=== PATIENT | female | born 1945 | race Hispanic/Latino ===

== ENCOUNTER 2024-04-04 20:32 | Inpatient (IN) | payer OTHER, SELFPAY ==
[2024-04-04] VITALS (25 sets, daily range): BP systolic 87–146; BP diastolic 42–115; BMI 34.6; BMI 33.4
--- NOTE | 2024-04-04 14:17 | ED.GENMED ---
History of Present Illness
<MARIANA Mckeon - Last Filed: 04/05/24 19:14>
General
Chief Complaint: Fall
Source: patient
Exam Limitations: none
Time Seen by Provider: 04/04/24 13:53
Nursing documentation reviewed up to this point in time: agreed with
History of Present Illness
History of Present Illness:
Patient is a 78-year-old female brought by EMS. Patient is visiting from [place] and was at her nephew's house and tripped on steps. She reports he twisted both ankles and fell landed on her right side hit the right side of her head right hip.
She complains of pain to bilateral ankles, left knee r,ight wrist, right elbow, right orbital region ,right hip. She denies any actual headache. no loss of consciousness she is not on blood thinners.
Review of Systems
<MARIANA Mckeon - Last Filed: 04/05/24 19:14>
Review of Systems
Allergies reviewed?: Yes
Other source history: family
All Other Systems: ROS reviewed and negative except as documented in HPI and ROS
Constitutional: Reports no symptoms
Respiratory: Reports no symptoms
Cardiac: Reports no symptoms
ABD/GI: Reports no symptoms
Musculoskeletal: Reports other (As documented pain to bilateral ankles left knee right hip right wrist right elbow)
Skin: Reports no symptoms
Neurological: Reports other ( no loc ); Denies headache
Phy Exam
<MARIANA Mckeon - Last Filed: 04/05/24 19:14>
General Physical Exam
General Presentation: no apparent distress
General age: appears stated age
General Skin: warm and dry
General Habitus: elderly
General Mental: alert
General Hydration: appears well hydrated
ENT Exam
ENT Exam: EOMI and neck supple
Eye Exam
Eye Exam: PERRL, EOMI and other (right orbital ecchymosis/swelling )
Eye Exam General: PERRL: bilateral and EOM intact: bilateral
Pupil Exam: Bilateral: round and reactive
Cardiovascular Exam
Cardiovascular Exam: regular rate/rhythm, no murmur and normal peripheral pulses
Pulmonary Exam
Pulmonary Exam: lungs clear and no respiratory distress
Neurological Exam
Neurological Exam: alert and oriented x3
Musculoskeletal Exam
Musculoskeletal Exam: other (Patient with tenderness to bilateral lateral ankles strong pulses positive swelling to bilateral ankle; left knee with mild swelling mildly tender however able to flex and extend knees good range of motion of bilateral
hips; bilateral upper extremity strong pulses right wrist with obvious deformity )
Skin Exam
Skin Exam: normal color and warm/dry
Psychiatric Exam
Psychiatric Exam: normal mood/affect
Course
<MARIANA Mckeon - Last Filed: 04/05/24 19:14>
Orders/Labs/Results
Orders:
Orders
04/04/24 14:10
CT Head W/o Iv Contrast Urgent
Comment:
Reason For Exam: trauma
Ankle, Right 3 view CR [CR Ankle - Right Min 3 Views *] Urgent
Comment:
Reason For Exam: trauma
Ankle, left 3 view CR [CR Ankle - Left Min 3 Views ] Urgent
Comment:
Reason For Exam: trauma
04/04/24 14:11
CT Orbits W/o Iv Contrast Urgent
Comment:
Reason For Exam: trauma
CR Elbow - Right Min 2 View Urgent
Reason For Exam: trauma
Hip, Right 2-3 Views [CR Hip - RT w/wo Pel 2-3 Vw*] Urgent
Comment:
Reason For Exam: trauma
Include a pelvis x-ray?: Yes
04/04/24 14:12
Knee, Left 4 or More Views [CR Knee - Left 4 Or More View*] Urgent
Comment:
Reason For Exam: trauma
04/04/24 14:16
IV Insert/Care/Rem.- Treatment PRN
Morphine Sulfate 2 mg IV NOW STA
Wrist, Right 3 Views [CR Wrist - Right Min 3 Views] Urgent
Comment:
Reason For Exam: trauma
04/04/24 15:01
Morphine Sulfate 2 mg IV NOW STA
04/04/24 17:32
Propofol [Diprivan] 20 ml .ROUTE .STK-MED
04/04/24 18:21
Wrist, Right 2 Views CR [CR Wrist - Right Min 2 Views] Urgent
Comment:
Reason For Exam: post reduction
04/04/24 18:30
CR Ankle - Left 2 Views Urgent
Comment:
Reason For Exam: stress views
04/04/24 18:42
boot [Ortho Boot Left- Treatment] ONCE
Short or tall?: Tall
04/04/24 19:50
Admit/Transfer Patient As Directed
Co-Sign Provider:
Level of Care: Inpatient admission
Assign to:: Medical/Surgical
Physician / Group: [facility]
Diagnosis: fall
Reason for Hospitalization: all and R wrist fracture
Expected length of stay greater than two midnights?: Yes
ELOS- Estimated Length of Stay in days: 3
I certify the patient meets the requirements for IP care: Yes
PRN Pain Medication Management As Directed
May give lesser potent ordered pain med per pt: Yes
preference::
Protocol:: Medication orders for pain may be administered in a
manner that supports deferring to patient preference
when the pt is:
- Requesting an ordered lesser potent pain medication.
Least to most potent pain medications are defined
as: acetaminophen < NSAID < tramadol < opioids
(morphine, oxycodone, hydromorphone).
- Requesting a lesser dose of the same medication IF
ORDERED.
- Requesting a less intrusive route of administration
if both routes are prescribed by the provider (PO <
IV).
04/04/24 19:57
Code Status As Directed
Resuscitation Status: Full Code
ORTHOPEDIC CONSULT Routine
Consulting Provider: Triston Kang
Was physician already notified: Yes
Reason for consult: R wrist and Left ankle fracture
Bisacodyl [Dulcolax] 10 mg RECTAL [id number] PRN
Docusate W/Senna [Senokot-S] 1 tablet PO BIDPRN PRN
Polyethylene Glycol Powder [Miralax] 17 grams PO DAILYPRN PRN
Precautions As Directed
Type of Precautions: Other
Comment: fall precaution
04/04/24 20:00
Activity As Directed
Activity Level: With Assistance
Vital Signs As Directed
Frequency: Per unit guidelines
04/04/24 20:02
Acetaminophen [Tylenol] 650 mg PO Q4HPRN PRN
HYDROmorphone [Dilaudid] 0.5 mg IV Q4HPRN PRN
Ondansetron Injectable [Zofran] 4 mg IV Q6HPRN PRN
04/04/24 20:04
HYDROmorphone [Dilaudid] 0.5 mg IV Q4HPRN PRN
04/04/24 20:26
Ot Eval And Treat Routine
Pt Eval And Treat Routine
Activity Level: With Assistance
04/04/24 20:56
Basic Metabolic Panel Routine
Complete Blood Count/No Diff Routine
04/04/24 22:23
Amlodipine [Norvasc] 10 mg PO HS
Montelukast Sodium [Singulair] 10 mg PO HS
icosapent ethyl [Vascepa] 2 grams PO BID
04/04/24 22:23
DX Deep Vein Thrombosis Video Routine
04/05/24 Breakfast
Cholesterol Lowering
At Your Request: Full Participation
Does patient need a safe tray?: No
Cholesterol Lowering: Sodium, 2 Gram
04/05/24 08:00
Hydrochlorothiazide [Oretic] 25 mg PO DAILY
Olmesartan Medoxomil [Benicar] 40 mg PO DAILY
Pantoprazole [Protonix] 40 mg PO DAILY
04/05/24 18:00
Enoxaparin Sodium [Lovenox] 40 mg SC QPM
Vital Signs
Initial and Last Documented VS:
Initial Vital Signs
Temp Pulse Resp BP Pulse Ox
98.6 F 72 16 137/69 98
04/04/24 14:17 04/04/24 14:17 04/04/24 14:17 04/04/24 14:17 04/04/24 14:17
Last Documented Vital Signs
Temp Pulse Resp BP Pulse Ox
97.7 F 59 18 123/53 93
04/05/24 15:51 04/05/24 15:51 04/05/24 15:51 04/05/24 15:51 04/05/24 15:51
Transmission Tester consulted with Physician
Transmission Tester consulted with physician?: Yes
Name of Physician Consulted: DR Estes
<Lorena Estes, DO - Last Filed: 04/04/24 17:21>
Orders/Labs/Results
Orders:
Orders
04/04/24 14:10
CT Head W/o Iv Contrast Urgent
Comment:
Reason For Exam: trauma
Ankle, Right 3 view CR [CR Ankle - Right Min 3 Views *] Urgent
Comment:
Reason For Exam: trauma
Ankle, left 3 view CR [CR Ankle - Left Min 3 Views ] Urgent
Comment:
Reason For Exam: trauma
04/04/24 14:11
CT Orbits W/o Iv Contrast Urgent
Comment:
Reason For Exam: trauma
CR Elbow - Right Min 2 View Urgent
Reason For Exam: trauma
Hip, Right 2-3 Views [CR Hip - RT w/wo Pel 2-3 Vw*] Urgent
Comment:
Reason For Exam: trauma
Include a pelvis x-ray?: Yes
04/04/24 14:12
Knee, Left 4 or More Views [CR Knee - Left 4 Or More View*] Urgent
Comment:
Reason For Exam: trauma
04/04/24 14:16
IV Insert/Care/Rem.- Treatment PRN
Morphine Sulfate 2 mg IV NOW STA
Wrist, Right 3 Views [CR Wrist - Right Min 3 Views] Urgent
Comment:
Reason For Exam: trauma
04/04/24 15:01
Morphine Sulfate 2 mg IV NOW STA
04/04/24 17:32
Propofol [Diprivan] 20 ml .ROUTE .STK-MED
04/04/24 18:21
Wrist, Right 2 Views CR [CR Wrist - Right Min 2 Views] Urgent
Comment:
Reason For Exam: post reduction
04/04/24 18:30
CR Ankle - Left 2 Views Urgent
Comment:
Reason For Exam: stress views
04/04/24 18:42
boot [Ortho Boot Left- Treatment] ONCE
Short or tall?: Tall
04/04/24 19:50
Admit/Transfer Patient As Directed
Co-Sign Provider:
Level of Care: Inpatient admission
Assign to:: Medical/Surgical
Physician / Group: [facility]
Diagnosis: fall
Reason for Hospitalization: all and R wrist fracture
Expected length of stay greater than two midnights?: Yes
ELOS- Estimated Length of Stay in days: 3
I certify the patient meets the requirements for IP care: Yes
PRN Pain Medication Management As Directed
May give lesser potent ordered pain med per pt: Yes
preference::
Protocol:: Medication orders for pain may be administered in a
manner that supports deferring to patient preference
when the pt is:
- Requesting an ordered lesser potent pain medication.
Least to most potent pain medications are defined
as: acetaminophen < NSAID < tramadol < opioids
(morphine, oxycodone, hydromorphone).
- Requesting a lesser dose of the same medication IF
ORDERED.
- Requesting a less intrusive route of administration
if both routes are prescribed by the provider (PO <
IV).
04/04/24 19:57
Code Status As Directed
Resuscitation Status: Full Code
ORTHOPEDIC CONSULT Routine
Consulting Provider: Triston Kang
Was physician already notified: Yes
Reason for consult: R wrist and Left ankle fracture
Bisacodyl [Dulcolax] 10 mg RECTAL [id number] PRN
Docusate W/Senna [Senokot-S] 1 tablet PO BIDPRN PRN
Polyethylene Glycol Powder [Miralax] 17 grams PO DAILYPRN PRN
Precautions As Directed
Type of Precautions: Other
Comment: fall precaution
04/04/24 20:00
Activity As Directed
Activity Level: With Assistance
Vital Signs As Directed
Frequency: Per unit guidelines
04/04/24 20:02
Acetaminophen [Tylenol] 650 mg PO Q4HPRN PRN
HYDROmorphone [Dilaudid] 0.5 mg IV Q4HPRN PRN
Ondansetron Injectable [Zofran] 4 mg IV Q6HPRN PRN
04/04/24 20:04
HYDROmorphone [Dilaudid] 0.5 mg IV Q4HPRN PRN
04/04/24 20:26
Ot Eval And Treat Routine
Pt Eval And Treat Routine
Activity Level: With Assistance
04/04/24 20:56
Basic Metabolic Panel Routine
Complete Blood Count/No Diff Routine
04/04/24 22:23
Amlodipine [Norvasc] 10 mg PO HS
Montelukast Sodium [Singulair] 10 mg PO HS
icosapent ethyl [Vascepa] 2 grams PO BID
04/04/24 22:23
DX Deep Vein Thrombosis Video Routine
04/05/24 Breakfast
Cholesterol Lowering
At Your Request: Full Participation
Does patient need a safe tray?: No
Cholesterol Lowering: Sodium, 2 Gram
04/05/24 08:00
Hydrochlorothiazide [Oretic] 25 mg PO DAILY
Olmesartan Medoxomil [Benicar] 40 mg PO DAILY
Pantoprazole [Protonix] 40 mg PO DAILY
04/05/24 18:00
Enoxaparin Sodium [Lovenox] 40 mg SC QPM
Vital Signs
Initial and Last Documented VS:
Initial Vital Signs
Temp Pulse Resp BP Pulse Ox
98.6 F 72 16 137/69 98
04/04/24 14:17 04/04/24 14:17 04/04/24 14:17 04/04/24 14:17 04/04/24 14:17
Last Documented Vital Signs
Temp Pulse Resp BP Pulse Ox
97.7 F 59 18 123/53 93
04/05/24 15:51 04/05/24 15:51 04/05/24 15:51 04/05/24 15:51 04/05/24 15:51
Procedures
<MARIANA Mckeon - Last Filed: 04/05/24 19:14>
Moderate Sedation
ASA Risk Score: Class II
Chart and allergies reviewed: Yes
Consent for anesthesia obtained: Yes
Time out completed (validating right patient & procedure): Yes
Moderate Sedation Start Time(when first medication is given): 18:08
History of difficult intubation: No
Airway free of obstruction: Yes
Patient has a gag reflex: Yes
Patient is able to open mouth: Yes
Patient has no dentures: Yes
Patient has no loose teeth: Yes
Medication administered by Provider during Moderate Sedation: IV Propofol (mg)
Total dose administered: 100
Time drug administered: 18:08
Moderate Sedation Procedure End Time: 18:25
<MARIANA Mckeon - Last Filed: 04/05/24 19:14>
MDM/Problems Addressed
Differential Diagnosis Includes:
Not limited to head injury, wrist fracture, ankle fracture for sprain knee fracture versus contusion versus sprain strain elbow fracture orbital fracture, contusions
MDM/Problems Addressed:
Patient is a 78-year-old female who describes mechanical fall and fell twisting her ankles and landed on right side, hitting right head knee right wrist and right elbow. Patient has an obvious hematoma to the right forehead orbital region. She is
not on blood thinners CT head negative. She has obvious wrist deformity with obvious distal radius and ulna fracture. Patient has a distal left fibula fracture that appears nondisplaced. Case reviewed with orthopedics Dr. Kang who does
suggest reducing right wrist which was reduced with moderate sedation with ED physician at bedside. Patient has aside from the left distal femur fracture sprain of the right ankle and is unable to bear weight. Will admit because patient is unable
to bear weight will place left ankle in a boot after getting stress views requested by orthopedics. Right wrist was placed in a sugar-tong
<MARIANA Mckeon - Last Filed: 04/05/24 19:14>
*Radiology
Radiology exam reviewed: radiology read reviewed
*Pulse Oximetry
Patient hypoxic: no
*Critical Care Note
Total Time (30-74mins, 75-104mins- exclusive of procedures): Not Applicable
ED Attending Note
<MARIANA Mckeon - Last Filed: 04/05/24 19:14>
-
Portions of this chart may have been created with voice recognition software.� Occasional wrong word or��sound alike� substitutions may have occurred due to the inherent limitations of voice recognition software.
<Lorena Estes, DO - Last Filed: 04/04/24 17:21>
ED Attending Note
Patient seen and examined by attending physician: Yes
I performed the substantive portion of visit, reviewed & personally made and approve the management plan that is documented in note by myself or TINO.: Yes
I performed a history and physical exam of patient and discussed management with resident, I reviewed resident's note and agree with documented findings and plan of care.: Yes
ED Attending Note:
78-year-old female presenting after a fall. Patient is from [place], visiting family, tripped prior to arrival and fell, with signs of head injury. Primary complaint is right upper extremity pain, right hip pain, bilateral ankle pain. Vital signs
stable.
On exam, GCS 15, protecting airway with primary survey intact. On secondary survey, evidence of hematoma to the forehead. Obvious deformity to the right wrist with concern for fracture. Distal sensation and pulses intact. Generalized tenderness
to bilateral ankles without obvious deformity. Distal sensation and pulses intact. Pelvis is stable. Unremarkable cardiac and pulmonary exam. No tenderness to the abdomen. Trauma workup initiated by TINO, with CT brain imaging without acute
intracranial normality. However, x-ray of the wrist shows obvious radial fracture. In addition, left ankle fracture, left fibula. Patient is unable to ambulate, and will not be able to use crutches. For this reason will require admission. Plan
for sedation for reduction of the right wrist in discussion with orthopedics.
Discharge Plan
Departure
Patient Disposition: Admit
Date of Disposition: 04/04/24
Time of Disposition: 18:36
Admit to: Med/Surg
Admit to doctor: hospitalist
Presentation/result/management discussed w/ accepting MD/DO: Hospitalist
Patient with high blood pressure during this ER visit?: No
Condition: Fair
Covid-19: Not Applicable
Discharge Problem:
right wrist fracture, Head injury, left distal fibula fracture
Interventions
Interventions:
*Risk Screen - Suicide Last Done: 04/04/24 23:18
*General Assessment Last Done: 04/04/24 13:43
*Neglect/Abuse Screening Last Done: 04/04/24 13:43
ED- Fall Risk Assessment Last Done: 04/04/24 13:57
*ED COVID-19 Vaccine History Last Done: 04/04/24 23:18
*Nursing Disposition Last Done: 04/04/24 22:16
ED-Musculoskeletal Assessment Last Done: 04/04/24 14:56
ED- Neurological Assessment Last Done: 04/04/24 14:56
ED-Skin Assessment Last Done: 04/04/24 14:56
Discharge Date and Time
Discharge Date/Time: 04/04/24 22:16
[2024-04-04] MEDS: MORPHINE SULFATE 2 MG IV ×2 (14:26→16:01)
--- NOTE | 2024-04-04 20:05 | HPS.HSE ---
Family Physician
-
Family Physician: * NONE
Chief Complaint
-
Mechanical fall and pain in the right wrist
History of Present Illness
Pleasant 78-year-old female who is originally from [place] visiting family here, with known history of hypertension, dyslipidemia presented to the hospital after had a mechanical fall while trying to get out of the sunroom going to the PACU area
which has been caught on the security camera of the house, patient had no symptoms prior to the fall like syncope or dizziness or loss of balance. Is obvious from the videos right leg gave away and she fell on the right side onto the ground, and
try to hold her self with putting the right hand down, immediately experienced severe pain in the right wrist and left ankle as well as right wrist and right knee area,
On multiple x-ray while CT head and neck showed no intracranial abnormalities and some right periorbital skin skin contusion. X-ray of the right wrist showed right distal palmar fracture patient already been splinted also left ankle x-ray showed
nondisplaced distal head of the fibula.
Ortho been contacted recommending bring his surgical boot on both legs and posterior splint and right arm.
Patient awake, alert and oriented x 3 hold appropriate conversation accompanied by nephew at the bedside.
Still complaining of excruciating pain all over mostly right wrist and left ankle
Medical History
Past Medical History
Past Medical History: Reports Other
Additional Past Medical History:
Past medical history archive reviewed:
Hypertension
Dyslipidemia
Asthma
Social history: Recent lives in [place] while visiting the area, denies smoking and rarely drinks any alcohol and she is independent.
Family history: Reviewed and noncontributory
Past Surgical History: Reports Other
Social History
Unable to obtain full social history at this time due to: Other
Family History
Family History: Other
Allergies / Home Medications
Allergies reflects when Allergies were last updated in [employer].
Home Medications with original date entered in [facility]
Allergy/Medication List:
Allergies
Allergy/AdvReac Type Severity Reaction Status Date / Time
Penicillins Allergy Unknown Verified 04/04/24 13:37
Home Medications
amlodipine 10 mg tablet 10 mg PO HS 04/04/24
evolocumab 140 mg/mL subcutaneous pen injector (Repatha SureClick) 140 mg SC Q2W 04/04/24
hydrochlorothiazide 25 mg tablet 25 mg PO DAILY 04/04/24
icosapent ethyl 1 gram capsule (Vascepa) 2 g PO BID 04/04/24
lansoprazole 30 mg capsule,delayed release 30 mg PO DAILY 04/04/24
montelukast 10 mg tablet 10 mg PO HS 04/04/24
olmesartan 40 mg tablet 40 mg PO DAILY 04/04/24
Review of Systems
-
A 12 point ROS was completed and negative except as noted: Yes
Physical Exam
Vital Signs
Vital Signs
Temp Pulse Resp BP Pulse Ox
99 F 66 15 124/59 97
04/04/24 18:40 04/04/24 19:46 04/04/24 19:46 04/04/24 19:46 04/04/24 19:46
Physical exam:
General: Awake, alert and oriented x3, not in distress and holds appropriate conversation.
HEENT: Ecchymosis and bruises of the face especially around the right eye, no active discharge, ecchymosis or bruising, moist lips, tongue and mucous membrane.
Eyes: Right periorbital ecchymosis and bruising, no discharge or red conjunctiva, no nystagmus, pupils are reactive and equal
Neck:Supple, no JVD no bruit no goiter.
Respiratory: Normal AP contour and diameter, normal chest wall movement, normal respiratory effort, no respiratory distress,
Lungs: Good air entry bilaterally, no wheezing or rhonchi, no rales or crackles
Heart: S1, S2 regular, normal rate, no added sound.
Gastrointestinal: Positive bowel sounds, soft, nontender, no guarding or rigidity or organomegaly
Musculoskeletal: Right wrist have a posterior splint, able to move the finger good capillary refill, swelling of the both ankle area limitation of movement,, no chest wall abnormality or tenderness. All other joints and extremities have good range
of motion, no muscle tenderness or any joint swelling or tenderness.
Extremities: No pitting edema, good peripheral pulses, good range of motion
Skin: Warm and dry, no ulceration, normal color.
Neurological: Awake, alert and oriented x3, no facial droop speech clear and comprehensive, good muscle tone,
Psychiatric: Normal mood, normal thought and judgment, normal affect,
Physical Exam
General: Other
Laboratory Results
-
Blood work ordered and pending
CT head:
Crescentic soft tissue density in the right anterior frontal scalp and extending to the right periorbital region, compatible with soft tissue contusion/hematoma.
No evidence of acute intracranial abnormality.
Multijoint x-ray of the open reviewed by me while referred to the official report by radiologist once available.
Data Reviewed
-
Diagnostic Radiology: Image Personally Visualized and interpreted, Discussed with Patient and Discussed with Family
CT Scan: Image Personally Visualized and interpreted, Report Reviewed by me, Discussed with Patient and Discussed with Family
Impression/Plan
-
IMPRESSION:
78-year-old female presented to the hospital for mechanical fall while getting out of the sun room to the [facility] area fell down couple of steps. Workup showed right distal radius and left distal fibular fracture.
Mechanical fall:
PT
Fall precaution
Right wrist fracture: Patient already have a posterior splint
Pain medication with Dilaudid and Tylenol as needed
Elevation of the right upper extremity
Ortho consult and defer further workup to Ortho
Left distal fibular head fracture with no displacement:
Ortho consulted and recommended surgical boot
IV Dilaudid as needed
Tylenol as needed
PT OT
Hypertension:
Continue amlodipine and olmesartan monitor vital sign.
Check CBC and BMP
All discussed with the patient and the nurse at the bedside in detail expressed understanding
Consults full code
DVT prophylaxis Lovenox
[2024-04-04] MEDS: DILAUDID 0.5 MG IV (20:52)
[2024-04-04 21:07] LABS: Hematocrit 32.8 % (37.0-47.0); Hemoglobin 11.3 g/dL (12.0-16.0); Mean Corp Hgb Conc. 34.5 g/dL (33.0-37.0); Mean Corpuscular Hgb 27.4 pg (27.0-31.0); Mean Corpuscular Volume 79.6 fL (81.0-99.0); Mean Platelet Volume 9.7 fL (7.4-10.4); Platelet Count 164 10^3/uL (130-400); Red Blood Cell Count 4.12 10^6/uL (4.20-5.40); Red Cell Dist. Width 14.6 % (11.5-14.5); White Blood Cell Count 6.8 10^3/uL (4.8-10.8)
[2024-04-04 21:21] LABS: Blood Urea Nitrogen 21 mg/dl (7-17); Calcium 8.6 mg/dl (8.4-10.2); Carbon Dioxide 23 mmol/L (22-30); Chloride 107 mmol/L (98-107); Estimated Creatinine Clearance 68 ml/min; Glucose 99 mg/dl (70-99); Potassium 3.5 mmol/L (3.5-5.1); Sodium 141 mmol/L (135-145); eGFR > 60.00
[2024-04-04] MEDS: NORVASC 10 MG PO (23:10)
[2024-04-04] MEDS: SINGULAIR 10 MG PO (23:11)
--- NOTE | 2024-04-05 02:27 | TRANSFER ---
Addendum entered by Stella Wilkinson RN 04/05/24 03:05:
Right elbow to palm splinted and des wrapped. Plan of care ongoing.
Original Note:
Pt admitted to unit from ED. Pt pulled over into bed from stretcher by nursing staff. Right elbow and forearm splinted and des wrapped. Left foot has surgical boot. Static overlay in place. Q2 turn. AAXO3. VS: Temp 98.2, Pulse 64, BP 130/52, Resp
rate 16, and O2 97% on RA. Pt reports taking a '81 mg aspirin before flying on [April 02] morning. My doctor told me to take an aspirin the night before I fly. I forgot so I took it morning. I had a blood clot before.' Notified
MARIANA So Snehal Aponte (Linda). No new orders at this time. Plan of care ongoing.
[2024-04-05] MEDS: DILAUDID 0.5 MG IV ×5 (05:36→22:01)
[2024-04-05] MEDS: FLUSH (NSS) 2 FLUSH IV (05:38)
--- NOTE | 2024-04-05 06:24 | CON.ORTHO ---
Consultation - Orthopedics
History
78-year-old female presented to the emergency department status post trip and fall down some steps with predominant complaints of right wrist pain and left ankle pain. She subsequently diagnosed with a displaced right distal radius fracture as well
as a nondisplaced left malleolus fracture. She underwent closed reduction of wrist fracture and was placed in a boot for left ankle fracture admitted to the hospital service for ambulatory dysfunction. Orthopedics was consulted for further
evaluation and treatment. This morning patient reports that she was visiting her nephew from [place]. She currently resides in the [facility]. As she is complaining of pain in bilateral ankles as well as right wrist although she reports
feeling much improvement in her right wrist pain in splint. She reports that she does have a walker at home but does not regularly use this for ambulatory assistance. She reports that she is [id number].
Allergies / Home Medications
Past medical history: Hypertension, dyslipidemia, asthma
Past surgical history. None reported
Social history: Lives in [place], non-smoker
Family history not pertinent
Allergy/AdvReac Type Severity Reaction Status Date / Time
adhesive tape Allergy Rash Verified 04/04/24 23:17
Penicillins Allergy Unknown Verified 04/04/24 13:37
�Medication �Instructions �Recorded
amlodipine 10 mg tablet 10 mg PO HS 04/04/24
evolocumab 140 mg/mL subcutaneous 140 mg SC Q2W 04/04/24
pen injector (Repathjavon Trinidadick)
hydrochlorothiazide 25 mg tablet 25 mg PO DAILY 04/04/24
icosapent ethyl 1 gram capsule 2 g PO BID 04/04/24
(Vascepa)
lansoprazole 30 mg capsule,delayed 30 mg PO DAILY 04/04/24
release
montelukast 10 mg tablet 10 mg PO HS 04/04/24
olmesartan 40 mg tablet 40 mg PO DAILY 04/04/24
Systane Complete PF BOTH EYES QID dry eyes 04/05/24
Systane Gel BOTH EYES HS dry eyes 04/05/24
Vital Signs / Lab Results
Temp Pulse Resp BP Pulse Ox
98.2 F 64 16 130/52 97
04/04/24 23:00 04/04/24 23:10 04/04/24 23:00 04/04/24 23:10 04/04/24 23:30
04/04/24 20:56
04/04/24 20:56
10 point review systems reviewed and negative unless otherwise stated
General: Pleasant, no acute distress, at rest
Musculoskeletal
Right upper extremity and sugar-tong splint, exposed fingers warm sensate and mobile with some mild to moderate swelling noted
Musculoskeletal left lower extremity with discrete tenderness palpation over the lateral malleolus
No tenderness palpation of the medial mall is anterior and talar joint line proximal fifth metatarsal
Positive EHL, FHL, ankle dorsiflexion, plantarflexion with mild pain
Brisk cap refill
Musculoskeletal right lower extremity
Moderate swelling over anterolateral ankle
Discrete tenderness palpation over anterolateral ligamentous complex
No significant dislocation of the malleolus laterally with significant talar joint line
Positive EHL, FHL, ankle dorsi plantarflexion obvious cap refill
No other areas of bony tenderness palpation or crepitation of long bones or joints tertiary examination
Diagnostic studies
X-rays of left ankle reviewed by myself that show a nondisplaced lateral malleolus fracture. Radiologist report of gravity stress views reports raising concern for ligamentous injury. On my view the most appropriate gravity stress view shows
fairly well-maintained and congruent mortise joint. Certainly tib-fib overlap is appropriate with perhaps some minimal widening of the medial joint space. X-rays of right ankle show no fractures my read with symmetric mortise joint. X-rays of
right wrist show a comminuted intra-articular distal radius fracture with significant dorsal angulation and shortening with postreduction films showing significant improvement with fairly neutral alignment on lateral view with good confucianist of
radial height.
Assessment / Plan
78-year-old female status post fall with right intra-articular displaced distal radius fracture and nondisplaced left lateral malleolus fracture and right ankle sprain. My opinion I think the left ankle fracture can be treated conservatively with a
boot. The right distal radius fracture shows fairly substantial improvement in alignment position following reduction. I had a long discussion with the patient this morning regarding her diagnoses and potential treatment options. I think that if
the fracture of her right distal radius were to maintain this position this could be treated conservatively. We did discuss the possibility of surgical intervention given her multiple injuries this might allow her to have use of her wrist a little
bit sooner to aid in ambulation. She like to give this some thought. She is not sure what her ultimate plans are regarding returning to [place] or staying in the area. Her daughter is actually flying in and she is going to have further discussion
with the family today. Certainly I will touch base with her either later today or tomorrow regarding ultimate decisions. Should she elect to pursue surgical fixation of her distal radius fracture, this likely would not occur until Saturday. This
was explained in detail to the patient. She voiced understanding and was in agreement with this plan. Would recommend weightbearing to the patient's tolerance of left lower extremity in a boot. Certainly she can bear weight to her right lower
extremity as well. I would maintain nonweightbearing right upper extremity however. Please reach out any questions or concerns
[2024-04-05 07:00] VITALS: BP 132/60
[2024-04-05] MEDS: BENICAR 40 MG PO (07:51)
[2024-04-05] MEDS: ORETIC 25 MG PO (07:52)
[2024-04-05] MEDS: PROTONIX 40 MG PO (07:52)
[2024-04-05] MEDS: DESENEX/MITRAZOL/ZEASORB 1 APPLIC TOPICAL ×2 (07:57→20:01)
--- NOTE | 2024-04-05 10:44 | W.PN.HOSP.TC ---
Addendum entered and electronically signed by Daniel Gordon MD 04/05/24 12:12:
I saw and evaluated the patient. I reviewed the resident�s note and agree with findings and plan as documented in the resident�s note.
No new complaints.
Gen: NAD, Awake and alert
Eyes: EOMI, PERRLA, no scleral icterus.
Neck: supple.
CV: RRR, +S1/S2, no m/r/g.
Resp: CTAB, no rales, wheezes, or rhonchi.
Abd: +BS, soft, NT, ND
Skin: No rashes.
Neuro: CN 2-12 intact, non-focal.
Psych: Normal mood and affect.
R wrist fx:
-pt likely to want surgical intervention
-Regarding perioperative cardiovascular risk assessment for noncardiac surgery patient is low risk and I would recommend proceeding with planned surgery as benefit greatly outweighs the risk.
Left distal fibular head fracture:
-nonoperative management
Original Note:
Today's Communication/Plan
-
Patient will discuss with orthopedics whether patient wants surgical fixation conservative management. Continue pain management measures. PT.
Assessment / Plan
Assessment / Plan
#Mechanical fall:
PT
Fall precaution
#Right wrist fracture: Patient already have a posterior splint
Pain medication with Dilaudid and Tylenol as needed
Elevation of the right upper extremity
Ortho consulted and are discussing surgical fixation vs conservative management with the patient currently. If she decided for surgery, she will go to the OR tomorrow. Ortho will touch base with patient again this afternoon.
#Left distal fibular head fracture with no displacement:
Ortho consulted and recommended surgical boot
IV Dilaudid as needed
Tylenol as needed
PT OT
#Hypertension:
Continue amlodipine and olmesartan monitor vital sign.
Check CBC and BMP
#Itchiness:
Pt complaining of itchiness of chest and back
Give anti-histamine
#All discussed with the patient and the nurse at the bedside in detail expressed understanding
Consults full code
DVT prophylaxis Lovenox
Anticipated Discharge: Within 24 hours
Subjective/Interval History
-
Date of Service: April 05, 2024
Objective Data
-
Vital Signs:
Vital Signs
Temp Pulse Resp BP Pulse Ox
97.7 F 59 16 132/60 96
04/05/24 07:00 04/05/24 07:52 04/05/24 07:00 04/05/24 07:52 04/05/24 07:00
I&O
04/04/24 04/05/24 04/06/24
06:59 06:59 06:59
Intake Total 240 / 240
Output Total 100 / 100
Balance 140 / 140
Review of Systems
-
History Source: Patient
Respiratory: Reports No Symptoms
Cardiac: Reports No Symptoms
Abdomen/GI: Reports No Symptoms
Musculoskeletal: Reports Other (Right wrist and L ankle pain)
Skin: Reports Itching
Physical Exam
-
General: Well Developed, No Apparent Distress and Comfortable
Respiratory: Clear to Auscultation
Cardiac: Regular Rhythm and S1/S2
GI: Soft, Nontender and Nondistended
Musculoskeletal: No Edema and Other (Right wrist and left ankle in appropriate splint and ankle)
Skin: Warm and Dry
Neuro: AO x 3
Psych: Calm
[2024-04-05] MEDS: CLARITIN 10 MG PO (12:20)
[2024-04-05 15:51] VITALS: BP 123/53
[2024-04-05 16:01] VITALS: BP 123/53; PULSE 59
[2024-04-05 16:36] VITALS: BP 123/53; PULSE 59
--- NOTE | 2024-04-05 17:17 | W.PN.UPDATE ---
Update Note
Progress Note Update
I saw patient and spoke to daughter at bedside. Also discussed care with cousin who lives locally. After discussion they would like to proceed with open reduction internal fixation of right distal radius fracture. We did discuss risks benefits
and alternatives. We discussed the usual expected perioperative and postoperative course. Verbal consent was obtained to proceed with ORIF right distal radius fracture. Will plan obtain written informed consent prior to procedure. Will
tentatively plan for surgery on Saturday. Please plan to keep patient n.p.o. Saturday night and midnight in preparation for OR. Please hold DVT prophylaxis Saturday morning. Please reach out any questions or concerns. Will also plan to place x-ray
of right foot as she is having some increasing tenderness palpation along the fifth metatarsal to evaluate for potential fracture.
[2024-04-05] MEDS: LOVENOX 40 MG SC (17:43)
[2024-04-05] MEDS: BENADRYL 25 MG PO ×2 (17:48→22:01)
[2024-04-05] MEDS: NORVASC 10 MG PO (20:56)
[2024-04-05] MEDS: SINGULAIR 10 MG PO (20:56)
[2024-04-05 23:00] VITALS: BP 150/53
[2024-04-06 07:45] VITALS: BP 133/60
[2024-04-06 08:02] LABS: Hematocrit 33.4 % (37.0-47.0); Hemoglobin 11.3 g/dL (12.0-16.0); Mean Corp Hgb Conc. 33.8 g/dL (33.0-37.0); Mean Corpuscular Hgb 28.3 pg (27.0-31.0); Mean Corpuscular Volume 83.5 fL (81.0-99.0); Mean Platelet Volume 10.4 fL (7.4-10.4); Platelet Count 157 10^3/uL (130-400); Red Cell Dist. Width 14.4 % (11.5-14.5)
[2024-04-06 08:39] LABS: Blood Urea Nitrogen 22 mg/dl (7-17); Calcium 8.8 mg/dl (8.4-10.2); Carbon Dioxide 30 mmol/L (22-30); Chloride 100 mmol/L (98-107); Estimated Creatinine Clearance 53 ml/min; Glucose 115 mg/dl (70-99); Potassium 3.4 mmol/L (3.5-5.1); Sodium 139 mmol/L (135-145); eGFR > 60.00
[2024-04-06] MEDS: PROTONIX 40 MG PO (09:09)
[2024-04-06] MEDS: BENICAR 40 MG PO (09:09)
[2024-04-06] MEDS: DESENEX/MITRAZOL/ZEASORB 1 APPLIC TOPICAL ×2 (09:09→21:25)
[2024-04-06] MEDS: ORETIC 25 MG PO (09:10)
[2024-04-06] MEDS: DILAUDID 0.5 MG IV ×2 (09:16→19:57)
[2024-04-06] MEDS: TYLENOL 650 MG PO ×2 (09:17→17:16)
--- NOTE | 2024-04-06 11:37 | CM ---
Patient seen bedside with daughter (translated.)
patient was here visiting cousin and fell.
patient lives in [place].
Daughter Abigail added to the contact list.
Abigail lives in [place].
Patient lives in a 4th floor apartment with elevator access, then at the end of the hernandez.
patient was driving prior to admission, no assistive devices.
Was receiving outpatient therapy for back issues prior to admission in [place].
Dx fractured elbow and ankle. PT/OT recommending acute rehab.
Patient for OR tomorrow.
CM requested PMR consult post op.
Referral placed to [facility].
PCP: Dr Guerra ([place])
[facility]- [place]
Plan: possible rehab post surgery.
[2024-04-06 15:02] VITALS: BP 132/58
[2024-04-06 15:11] VITALS: BP 132/58; PULSE 74
[2024-04-06] MEDS: LOVENOX 40 MG SC (17:17)
[2024-04-06] MEDS: KCL 20 MEQ PO (17:41)
--- NOTE | 2024-04-06 19:24 | W.PN.HOSP.TC ---
Addendum entered and electronically signed by Tank Clinton MD 04/06/24 22:11:
Attending Addendum-
I saw and evaluated the patient. I reviewed the resident�s note and agree with findings and plan as documented in the resident�s note. Sub: Complains of pain in right wrist and right foot. Pain meds help. Full 12 point ROS reviewed and negative
except as documented Exam: Vitals reviewed in chart GEN-NAD right periorbital bruising heart RRR lungs clear abd soft Ext- right wrist in in cast LLE in boot gilberto to wiggle toes and fingers well perfused
# Right wrist fracture
- s/p closed reduction
- cont NWB
- s/p post splint/cast
- cont Pain control
- ORIF on 04/07
- NPOpMN
# Left distal fibular head fracture with no displacement:
- conservative tx
- WBAT
- cont CAM boot
- IV Dilaudid as needed
- Tylenol as needed
- PT OT
# Right Foot Chip Fracture
- conservative care
- x ray personally reviewed
- pain control
- WBAT
# Hypokalemia
- replete
- check BMP in am
# Hypertension:
- Continue amlodipine and olmesartan
# HLD- cont repatha as op
# GERD- cont lansoprazole
Code- full
DVT prophylaxis Lovenox
Dispo for acute rehab c/s PMnR
Time spent coordinating care, review of plan of care with resident, personally reviewed records in EMR, med rec, consults, notes, labs, radiology, d/w nursing and daughter � 53 mins
Original Note:
Today's Communication/Plan
-
NPO after midnight, OR with ortho tomorrow.
Assessment / Plan
Assessment / Plan
#S/p mechanical fall
- Fall precaution
#R distal radius fracture
- Pain appropriately controlled with tylenol and dilauded prn.
- Cast in place. Continue elevation of right upper extremity.
- Ortho following. Plan for ORIF with ortho tomorrow. Patient to be NPO after midnight, lovenox to be held tomorrow.
#Left distal fibular head fracture with no displacement:
- Surgical boot in place per ortho.
- Pain management as above.
- Ortho following. PT/OT following.
- PT/OT recommending acute rehab after hospital discharge. Will consult physiatry.
#Pain along 5th metatarsal R foot
- xray showing possible tiny chip fracture of distal fibula, soft tissue calcification vs old fracture of cuboid bone, mild first MTP joint osteoarthritis
- Pain management as above. Can wrap foot for comfort per patient request.
- Ortho following. PT/OT following.
#Hypertension:
- Recent BPs normotensive to hypertensive.
- Continue amlodipine and olmesartan monitor vital sign.
#Hypokalemia
- Serum K 3.4 today. Will give 20 meq K PO
- Repeat BMP tomorrow.
#Pruritus without rash:
- Improving s/p benadryl
Full code
DVT prophylaxis Lovenox
Anticipated Discharge: 24 - 48 hours
Subjective/Interval History
-
Date of Service: April 06, 2024
Complains some pain due to her fractures, which is slightly improved by pain medications. She also had some skin itchiness which was relieved by Benadryl. She reports constipation since her last bowel movement on 04/02. At home she typically has
daily bowel movements. She denies lightheadedness, dizziness, chest pain, shortness of breath, nausea, vomiting, abdominal pain. She is tolerating PO diet. She is bilingual and declined use of visitor services specialist.
Objective Data
-
Labs:
Laboratory Results
04/06/24
07:33
WBC 5.0
Hgb 11.3 L
Hct 33.4 L
Plt Count 157
Sodium 139
Potassium 3.4 L
Chloride 100
Carbon Dioxide 30
BUN 22 H
Creatinine 0.8
Glucose 115 H
Calcium 8.8
Vital Signs:
Vital Signs
Temp Pulse Resp BP Pulse Ox
98.4 F 72 19 132/58 93
04/06/24 15:02 04/06/24 15:02 04/06/24 15:02 04/06/24 15:02 04/06/24 15:02
I&O
04/05/24 04/06/24 04/07/24
06:59 06:59 06:59
Intake Total 240 / 240 780 / 780 660 / 660
Output Total 100 / 100 1150 / 1150
Balance 140 / 140 -370 / -370 660 / 660
Review of Systems
-
History Source: Patient
All other systems: Reviewed and negative
Physical Exam
-
General: Well Developed
HEENT: Normocephalic and Other (ecchymosis over right orbital region )
Respiratory: Clear to Auscultation and Non Labored Respirations
Cardiac: Regular Rhythm
GI: Soft, Nontender, Nondistended and Normal Bowel Sounds
Musculoskeletal: No Edema and Other (R forearm/wrist cast, L foot boot)
Skin: Warm and Dry
Neuro: Awake, Alert and Oriented
Psych: Calm
Data Reviewed
-
Diagnostic Radiology: Report Reviewed by me and Discussed with Physician
Labs: Labs Reviewed by me and Discussed with Physician
[2024-04-06] MEDS: BENADRYL 25 MG PO (19:58)
[2024-04-06] MEDS: NORVASC 10 MG PO (21:25)
[2024-04-06] MEDS: SINGULAIR 10 MG PO (21:25)
[2024-04-06 23:06] VITALS: BP 133/46
[2024-04-07] VITALS (13 sets, daily range): BP systolic 116–156; BP diastolic 48–81; PULSE 61
[2024-04-07 07:05] LABS: Hematocrit 35.5 % (37.0-47.0); Hemoglobin 12.2 g/dL (12.0-16.0); Mean Corp Hgb Conc. 34.4 g/dL (33.0-37.0); Mean Corpuscular Hgb 27.7 pg (27.0-31.0); Mean Corpuscular Volume 80.7 fL (81.0-99.0); Platelet Count 179 10^3/uL (130-400); Red Cell Dist. Width 14.1 % (11.5-14.5); White Blood Cell Count 5.3 10^3/uL (4.8-10.8)
[2024-04-07 07:18] LABS: Blood Urea Nitrogen 23 mg/dl (7-17); Calcium 9.2 mg/dl (8.4-10.2); Carbon Dioxide 32 mmol/L (22-30); Chloride 101 mmol/L (98-107); Estimated Creatinine Clearance 53 ml/min; Glucose 108 mg/dl (70-99); Potassium 4.1 mmol/L (3.5-5.1); Sodium 141 mmol/L (135-145); eGFR > 60.00
--- NOTE | 2024-04-07 07:36 | W.PN.HOSP.TC ---
Addendum entered and electronically signed by Tank Clinton MD 04/07/24 21:52:
Attending Addendum-
I saw and evaluated the patient. I reviewed the resident�s note and agree with findings and plan as documented in the resident�s note. Sub: continues to have pain in right wrist > right foot. Full 12 point ROS reviewed and negative except as
documented Exam: Vitals reviewed in chart GEN-NAD right periorbital bruising heart RRR lungs clear abd soft Ext- right wrist in in cast LLE in boot able to wiggle toes and fingers well perfused
# Right wrist fracture
- s/p closed reduction in ED
- cont NWB
- s/p post splint/cast
- cont Pain control
- ORIF on 04/07 Dr. Kang
# Left distal fibular head fracture W/O displacement
- conservative tx
- WBAT
- cont CAM boot
- IV Dilaudid as needed
- Tylenol as needed
- PT OT
# Right Foot Chip Fracture
- conservative care
- x ray personally reviewed
- pain control
- WBAT
# Hypokalemia
- resolved
- replete prn
- check BMP in am
# Hypertension
- Continue amlodipine HCTZ and olmesartan
# HLD- cont repatha as op
# GERD- cont lansoprazole
Code- full
DVT prophylaxis Lovenox
Dispo- possible acute rehab c/s PMnR
Time spent coordinating care, review of plan of care with resident, personally reviewed records in EMR, med rec, consults, notes, labs, radiology, d/w nursing daughter and PMnR � 55 mins
Original Note:
Today's Communication/Plan
-
Ortho surgery today.
Assessment / Plan
Assessment / Plan
78 year old female with history of hypertension who presented to hospital after a mechanical fall and found to have multiple fractures
#S/p mechanical fall
- Fall precaution
#R distal radius fracture
- S/p closed reduction, splint/cast
- Pain appropriately controlled with tylenol and dilauded prn.
- Continue nonweight bearing and elevation of right upper extremity.
- Ortho following. Plan for ORIF with ortho today. Patient to be NPO preoperatively.
- PT/OT following
#Left distal fibular head fracture with no displacement:
- Surgical boot in place, continue conservative management.
- Pain control as above.
- Ortho following. PT/OT following.
#Right foot chip fracture
- xray showing possible tiny chip fracture of distal fibula, soft tissue calcification vs old fracture of cuboid bone, mild first MTP joint osteoarthritis
- Pain control as above. Continue des wrap on foot for patient comfort. Continue conservative management.
- Ortho following. PT/OT following.
#Hypertension
- Recent BPs normotensive to hypertensive.
- Continue amlodipine and olmesartan monitor vital sign.
#Hypokalemia: resolved
- S/p 20meq K PO
- Serum K 3.4 --> 4.1 today
#Pruritus without rash:
- Improving s/p benadryl
Full code
DVT prophylaxis Lovenox
Dispo planning: PT/OT recommending acute rehab after hospital discharge. Physiatry consulted
Anticipated Discharge: 24 - 48 hours
Subjective/Interval History
-
Date of Service: April 07, 2024
Feeling well overall. Right foot pain greatly improved with compression wrap. Continues to endorse hand pain that is partially improved with tylenol and IV dilaudid. Has been NPO since midnight for upcoming surgery. Denies lightheadedness,
dizziness, chest pain, shortness of breath, nausea, vomiting.
Objective Data
-
Labs:
Laboratory Results
04/07/24
05:50
WBC 5.3
Hgb 12.2
Hct 35.5 L
Plt Count 179
Sodium 141
Potassium 4.1
Chloride 101
Carbon Dioxide 32 H
BUN 23 H
Creatinine 0.8
Glucose 108 H
Calcium 9.2
Vital Signs:
Vital Signs
Temp Pulse Resp BP Pulse Ox
97.9 F 63 16 133/46 96
04/06/24 23:06 04/06/24 23:06 04/06/24 23:06 04/06/24 23:06 04/06/24 23:06
I&O
04/06/24 04/07/24 04/08/24
06:59 06:59 06:59
Intake Total 780 / 780 1140 / 1140
Output Total 1150 / 1150
Balance -370 / -370 1140 / 1140
Review of Systems
-
History Source: Patient
All other systems: Reviewed and negative
Physical Exam
-
General: Well Developed, Well Nourished, No Apparent Distress, Comfortable and Conversant
HEENT: Normocephalic and Other (ecchymosis over right orbital region)
Respiratory: Clear to Auscultation and Non Labored Respirations
Cardiac: Regular Rhythm
GI: Soft, Nontender, Nondistended and Normal Bowel Sounds
Musculoskeletal: No Edema and Other (R forearm/wrist splint, L foot boot, R foot compression wrap. Well perfused)
Skin: Warm and Dry
Neuro: Awake, Alert and Oriented
Psych: Calm
Data Reviewed
-
Diagnostic Radiology: Report Reviewed by me and Discussed with Physician
Labs: Labs Reviewed by me and Discussed with Physician
[2024-04-07] MEDS: BENICAR PO (08:47)
[2024-04-07] MEDS: PROTONIX PO (08:48)
[2024-04-07] MEDS: ORETIC PO (08:48)
[2024-04-07] MEDS: DESENEX/MITRAZOL/ZEASORB TOPICAL (08:48)
[2024-04-07] MEDS: DILAUDID 0.5 MG IV (08:49)
[2024-04-07] MEDS: BENADRYL 6.25 MG IV (08:50)
--- NOTE | 2024-04-07 16:23 | OR.RPT ---
Operative Report
Operative Report
Anesthesia Type:
General With block
Operative Indications:
Displaced intra-articular right distal radius fracture setting of polytrauma
Operative Findings :
Displaced and significantly comminuted intra-articular right distal radius fracture
Complications:
None
Implants:
Cherie intermediate of volar distal radius locking plate, 2.7 mm locking screws, 3.5 mm bicortical screws
Procedure and Technique:
Open reduction internal fixation right distal radius fracture, 3 more fragments
INDICATIONS FOR PROCEDURE:
Patient is an active 78-year-old [id number] female who is visiting from [place] when she unfortunately slipped and fell. She presented to the emergency department complaints of ankle pain right wrist pain. She was ultimately diagnosed
with a displaced intra-articular right distal radius fracture as well as a nondisplaced left lateral malleolus fracture. I had a long due to discussion with the patient as well as her daughter regarding diagnosis and treatment options. She
actually had fairly reasonable reduction in neutral alignment with improvement of height. However they were concerned about her mobilization given her ankle fracture and she was in favor of proceeding with surgical intervention predominantly to
minimize her length of immobilization and to facilitate early mobilization. We discussed risks benefits and alternatives to surgery. We discussed the usual expected perioperative postoperative course. After discussion written informed consent was
obtained
OPERATIVE PROCEDURE:
Patient was seen identified the preoperative holding area. Operative extremity was marked. All questions were addressed. She was taken to the operating room where peripheral block was performed. Nonsterile tourniquet was applied. General
anesthesia was administered. Operative extremity was then prepped and draped in normal sterile fashion. Timeout was performed again identifying the correct operative extremity. Preoperative antibiotics were addressed. A modified volar approach
of Brian was utilized. Sharp dissection was carried through skin subcutaneous tissues. All neurovascular structures were protected. Deep dissection was carried down to bone and pronator quadratus was sharply incised and elevated off of the volar
surface of the distal radius. Fracture was identified and there was noted to be significant comminution with multiple nonarticular fragments that were nonviable and devoid of any soft tissue attachments. These were removed. Provisional reduction
was performed and found to be appropriate under biplanar intraoperative fluoroscopy. Volar plate was then placed in appropriate position under fluoroscopic guidance. Bicortical fixation was achieved in the oblong hole distally. Initial bicortical
fixation was achieved in the distal aspect of the plate and the remainder of the screws were then filled with locking screws of appropriate length. The nonlocking screw distally was then removed and replaced with a locking screw. 2 additional
bicortical 3.5 millimeter screws of appropriate length were placed in the shaft. Final orthogonal imaging confirmed appropriate position of the plate with appropriate reduction of the fracture. DRUJ was then tested in neutral position pronation
and supination and found to be stable. Satisfied with extent of surgery, wounds were copiously irrigated normal saline solution. Tourniquet was deflated hemostasis was achieved with bipolar electrocautery. Wound was closed in layered fashion
utilizing 2-0 Vicryl for subcutaneous layer. 3-0 nylon was utilized for skin. Sterile dressing was applied consisting of Xeroform, 4 x 4 gauze, Webril. A volar slab splint was then placed by myself. Anesthesia was reversed and patient was taken
to PACU in stable condition. Postoperative plan to include nonweightbearing to the right upper extremity in splint. She will continue to be allowed to bear weight to her tolerance bilateral lower extremities including left lower extremity in a
boot for her nondisplaced lateral malleolus fracture. Will plan to see patient back in 2 weeks for repeat evaluation and repeat radiographs and plan removal of sutures. There is some discussion about patient returning home to [place] in the near
future. At this the case that I did have a discussion with the family to ensure appropriate follow-up in the postoperative setting locally.
Disposition:
PACU stable condition
--- NOTE | 2024-04-07 16:26 | CM ---
CM reviewed chart, patient for OR today. PT/OT recommendations post OR remain acute rehab, PMR consulted. Updated referrals sent in [facility] to [facility]. CM will continue to follow for all discharge planning needs.
Plan; Acute Rehab pending [facility] Acceptance, PMR consult, will need insurance auth.
[2024-04-07] MEDS: DILAUDID 0.25 MG IV ×3 (16:38→22:27)
--- NOTE | 2024-04-07 17:48 | CON.MD ---
Documented by User: Mackenzie Adam MD, Resident 04/08/24 13:46
Consultation - Medical
-
Referring Provider: Tank Clinton MD
Chief Complaint: Right Wrist and Left Ankle Pain
History of Present Illness:
Patient is a 78-year-old right handed female who is originally from [place]. The communication was conducted via her daughter. She was at her nephew`s house when she tripped on the steps and fall down. She presented to ER on 04/04/24 complaining
from pain on right hip, bilateral ankle, left knee, right orbital region, right elbow and right wrist. She was ultimately diagnosed with a displaced intra-articular right distal radius fracture as well as a nondisplaced left lateral malleolus
fracture. The patient was admitted to hospital and was assessed by Orthopedic physician. She was recommended to have a conservative treatment for her left nondisplaced fibular fracture and her right wrist was cast. The patient decided to have
surgery on her right wrist and she had surgery for her right wrist on 04/07
Past Medical History:
Hypertension
Dyslipidemia
Asthma
Procedure History: Reports Other
Family History: Reviewed and noncontributory
Social History:Recent lives in [place] while visiting the area, denies smoking and rarely drinks any alcohol and she is independent.
Functional Level Premorbidly: Independent with all activities
Functional Level Currently:Bed Mobility:If Bed Mobility not assessed, reason: OOB in recline ,Transfer :Sit to stand- Minimal assistance,Stand to sit- Minimal
assistance, Ambulation/Weight Bearing/Gait: Ambulation Patient ambulated 40 feet with Platform RN (PFRW) and minimal assistance. -Weight Bearing Status: As tolerated Gait comment Antalgic LLE, able to progress from step-to to step-through gait
pattern, assistance to navigate RW with turns,
Balance:-Balance Comment Dynamic with platform RW was fair.
Tobacco: Denies
Alcohol: Denies
Drug use: Denies
Lives with:
24-hour assistance available: No
Number of floors: 4th floor apartment has elevator available
# steps to enter: flat to apartment entrance
Allergies
Allergy/AdvReac Type Severity Reaction Status Date / Time
adhesive tape Allergy Rash Verified 04/04/24 23:17
Penicillins Allergy Unknown Verified 04/04/24 13:37
Home Medications
amlodipine 10 mg tablet 10 mg PO HS Blood Pressure 04/04/24
evolocumab 140 mg/mL subcutaneous pen injector (Repatha SureClick) 140 mg SC Q2W High Cholesterol 04/04/24
hydrochlorothiazide 25 mg tablet 25 mg PO DAILY Blood Pressure 04/04/24
icosapent ethyl 1 gram capsule (Vascepa) 2 g PO BID High Cholesterol 04/04/24
lansoprazole 30 mg capsule,delayed release 30 mg PO DAILY Gastrointestinal Issue 04/04/24
montelukast 10 mg tablet 10 mg PO HS Lung/Breathing Issues 04/04/24
olmesartan 40 mg tablet 40 mg PO DAILY Blood Pressure 04/04/24
Systane Complete PF BOTH EYES QID dry eyes 04/05/24
Systane Gel BOTH EYES HS dry eyes 04/05/24
Review of Systems:
Constitutional: Reports no symptoms
Eye:Reports no symptoms. Bruising around right eye related her falling.
Ear/Nose/Throat:Reports no symptoms
Respiratory:Reports no symptoms
Cardiovascular: Reports no symptoms
Gastrointestinal:Reports no symptoms
Genitourinary: Reports no symptoms
Integumentary:Reports no symptoms
Neurologic: Reports no symptoms. Denies focal weakness/headache.
Musculoskeletal: As documented pain to bilateral ankles, left knee, right wrist, right elbow. Mild swelling on left knee but able to flex and extend knees.
Psychiatric:Reports no symptoms
Endocrine: Reports no symptoms
Hematologic/Lymphatic:Reports no symptoms
Allergic/Immunologic:Allergies were reviewed at admission
Vitals:
Vital Signs
Temp Pulse Resp BP Pulse Ox
97.9 F 65 12 139/58 100
04/07/24 17:28 04/07/24 17:45 04/07/24 17:45 04/07/24 17:45 04/07/24 17:45
Physical Exam:
General Appearance/Observation:Adequate hygiene, individual in no apparent distress. The patient has been putting on Cam boot on the left foot to stabilize left ankle, Duke wrap bandage on the right foot ankle ( some bruising on the right heel),
wrap on the right wrist to stabilize right wrist after the surgery.
Pain/Comfort Assessment:Patient endorses pain on her left ankle and right wrist.
Mood/Affect: Appropriate
Eyes: Conjunctiva/Lids: normal. some swelling/bruising around her right eye and some swelling on right eye lid. No infection signs.
Pupils: pupils equal round and reactive to light and Accommodation
Ears/Nose/Throat: oral mucosa moist, throat clear.
Neck: No muscle spasm or tenderness
Cardiovascular: Heart: regular, no murmur
Pulses: dorsalis pedis 2+ bilaterally
Respiratory: Respiratory Effort/Chest Expansion: normal Auscultation: Clear to auscultation bilaterally
Gastrointestinal: abdomen not tender, no distension, normal abdominal bowel sounds
Genitourinary: No Currie
Rectal Exam: Deferred
Extremities: Edema: Swelling on bilateral ankle and on left leg probably due trauma
Neurology Exam:
Orientation: Alert, Oriented to self, Time, Place
Memory: Intact immediately
Repetition: Intact
Comprehension: Intact
Two step command: Intact
Naming: Intact. The communication was conducted by her daughter
Cranial Nerves:
CNII: Pupillary light reflex: Intact Visual Field: Intact
CN III, IV, : Extraocular muscles: Intact
CN V: Facial Sensation at Forehead: Intact, Maxilla: Intact, Mandible: Intact
CN VII: Facial movement: Symmetric
CN VIII: Hearing: Normal with talking
CN IX/X: Speech & swallow: Normal, Position of Uvula: Midline
CN XI: Shoulder shrug: Symmetric
CN XII: Tongue protrusion: Midline
Sensory:
Light touch: The sensory examination was limited due her cast and cam boot. Left L5-S1 dermatomal area has diminished sensation comparing to right leg. The patient reported that she had an EMG and she was scheduled for a lumber MRI. She
described a radiating pain which runs down on her left leg from her thigh. She was receiving PT for that reason last month. The patient thinks this radiating pain can be main reason for her falling down.
Reflexes:
Biceps: 2 + on left side/ could not be assessed (right wrist surgery )
Brachioradialis: 2 + on left side/ could not be assessed (had right wrist surgery)
Triceps:2 + on left side/ could not be assessed (had right wrist surgery and has wrap on it)
Patellar: 2 + on right side/ could not be assessed due pain and cam boot on left foot.
Achilles: Could not be assessed due pain
Babinski: going down on the right side, Left side could not be assessed due cam boot.
Musculoskeletal:
Motor examination was suboptimal due her pain, right wrist surgery and cam boot.
Tone: Normal in all extremities
Range of Motion: ROM is limited on her right wrist and left ankle.
Lab Results
Lab Results - Hematology
04/06/24 04/07/24
07:33 05:50
WBC 5.0 5.3
Lab Results - Chemistry
04/06/24 04/07/24 04/08/24
07:33 05:50 04:39
BUN 22 H 23 H 28 H
Creatinine 0.8 0.8 0.8
Estimated Creat Clear 53 53 53
Lab Results - Chemistry
04/04/24 04/06/24 04/07/24
20:56 07:33 05:50
BUN 21 H 22 H 23 H
Creatinine 0.6 0.8 0.8
Estimated Creat Clear 68 53 53
Diagnostic Results:
Assessment
78 year old female who was diagnosed with displaced intra-articular right distal radius fracture as well as a nondisplaced left lateral malleolus fracture after she fall down. Orthopedic team decided to conservative treatment for her left ankle vs
to surgery and the patient had ORIF surgery on her right hand on 04/07. Per PT report, the patient is with WBAT on her left lower/right lower extremity and is with NWB on her right upper extremity. Additionally her PT reported that she was able to
ambulate 30 feet using a hemiwalker. SNF can be recommended to the patient regarding her minimal assistance during mobilization and not having medical complexity.
Fall: Likely multifactorial. Patient reports her falling can be related her left leg pain. Sciatica: Further evaluate with possible EMG/nerve conduction study and lumber MRI with neurology as outpatient. Possible L5-S1 radiculopathy with decreased
sensation on the left L5-S1 dermatomal areas. Continue: Fall precaution
R distal radius fracture
-Ortho following. Had ORIF surgery with ortho on 04/07/24.
- Pain appropriately controlled with tylenol and dilauded PRN.
- Continue nonweight bearing and elevation of right upper extremity
- PT/OT following
Left distal fibular head fracture with no displacement: Surgical boot on left ankle, continue conservative management with Ortho following . Continue PT/OT following and the patient is on WBAT on her both LE
Right foot chip fracture:
- xray showing possible tiny chip fracture of distal fibula, soft tissue calcification vs old fracture of cuboid bone, mild first MTP joint osteoarthritis
- Pain control as above. Continue duke wrap on foot for patient comfort. Continue conservative management.
- Ortho following. PT/OT following and the patient is on WBAT on her both LE
Hypertension: Continue current management with amlodipine and olmesartan, monitor vital sign.
Hypokalemia: seems resolved, follow up
DVT prophylaxis: Continue Lovenox. TEDs can be considered for mechanical prophylaxis
Plan
The patient was independent and an active lady before the trauma. PM&R, PT/OT would increase independence with ADLs, improve balance, coordination, endurance, strength, mobility, community reintegration, decreased burden of care on others and
family education. SNF can be recommended to the patient regarding her minimal assistance during mobilization and not having medical complexity. To continue PT/OT at a SNF is the appropriate option for the patient.
Thanks Dr Haider for involving me in this patient`s care.
Mackenzie Adam MD
Transitional Year Res[facility] Program

Documented by User: Trenton Haider MD 04/08/24 16:38
Consultation - Medical
-
Referring Provider: Tank Clinton MD
Chief Complaint: Right Wrist and Left Ankle Pain
History of Present Illness:
Patient is a 78-year-old right handed female who is originally from [place]. The communication was conducted via her daughter. She was at her nephew`s house when she tripped on the steps and fall down. She presented to ER on 04/04/24 complaining
from pain on right hip, bilateral ankle, left knee, right orbital region, right elbow and right wrist. She was ultimately diagnosed with a displaced intra-articular right distal radius fracture as well as a nondisplaced left lateral malleolus
fracture. The patient was admitted to hospital and was assessed by Orthopedic physician. She was recommended to have a conservative treatment for her left nondisplaced fibular fracture and her right wrist was cast. The patient decided to have
surgery on her right wrist and she had surgery for her right wrist on 04/[address] Triston Kang. She is nonweightbearing in the hand.
Patient reported that she had an EMG and she was scheduled for a lumber MRI. She notes having an L5 and L1 radiculopathy. She described a radiating pain which runs down on her left leg from her thigh. She was receiving PT for that reason last
month. The patient thinks this radiating pain can be main reason for her falling down.
Past Medical History:
Hypertension
Dyslipidemia
Asthma
Procedure History: Reports Other
Family History: Reviewed and noncontributory
Social History:Recent lives in [place] while visiting the area, denies smoking and rarely drinks any alcohol and she is independent.
Functional Level Premorbidly: Independent with all activities
Functional Level Currently:Bed Mobility:If Bed Mobility not assessed, reason: OOB in recline ,Transfer :Sit to stand- Minimal assistance,Stand to sit- Minimal
assistance, Ambulation/Weight Bearing/Gait: Ambulation Patient ambulated 40 feet with Platform RN (PFRW) and minimal assistance. -Weight Bearing Status: As tolerated Gait comment Antalgic LLE, able to progress from step-to to step-through gait
pattern, assistance to navigate RW with turns,
Balance:-Balance Comment Dynamic with platform RW was fair.
Tobacco: Denies
Alcohol: Denies
Drug use: Denies
Lives with:
24-hour assistance available: No
Number of floors: 4th floor apartment has elevator available
# steps to enter: flat to apartment entrance
Allergies
Allergy/AdvReac Type Severity Reaction Status Date / Time
adhesive tape Allergy Rash Verified 04/04/24 23:17
Penicillins Allergy Unknown Verified 04/04/24 13:37
Home Medications
amlodipine 10 mg tablet 10 mg PO HS Blood Pressure 04/04/24
evolocumab 140 mg/mL subcutaneous pen injector (Repatha SureClick) 140 mg SC Q2W High Cholesterol 04/04/24
hydrochlorothiazide 25 mg tablet 25 mg PO DAILY Blood Pressure 04/04/24
icosapent ethyl 1 gram capsule (Vascepa) 2 g PO BID High Cholesterol 04/04/24
lansoprazole 30 mg capsule,delayed release 30 mg PO DAILY Gastrointestinal Issue 04/04/24
montelukast 10 mg tablet 10 mg PO HS Lung/Breathing Issues 04/04/24
olmesartan 40 mg tablet 40 mg PO DAILY Blood Pressure 04/04/24
Systane Complete PF BOTH EYES QID dry eyes 04/05/24
Systane Gel BOTH EYES HS dry eyes 04/05/24
Review of Systems:
Constitutional: Reports no symptoms
Eye:Reports no symptoms. Bruising around right eye related her falling.
Ear/Nose/Throat:Reports no symptoms
Respiratory:Reports no symptoms
Cardiovascular: Reports no symptoms
Gastrointestinal:Reports no symptoms
Genitourinary: Reports no symptoms
Integumentary:Reports no symptoms
Neurologic: Reports no symptoms. Denies focal weakness/headache.
Musculoskeletal: As documented pain to bilateral ankles, left knee, right wrist, right elbow. Mild swelling on left knee but able to flex and extend knees.
Psychiatric:Reports no symptoms
Endocrine: Reports no symptoms
Hematologic/Lymphatic:Reports no symptoms
Allergic/Immunologic:Allergies were reviewed at admission
Vitals:
Vital Signs
Temp Pulse Resp BP Pulse Ox
97.9 F 65 12 139/58 100
04/07/24 17:28 04/07/24 17:45 04/07/24 17:45 04/07/24 17:45 04/07/24 17:45
Physical Exam:
General Appearance/Observation:Adequate hygiene, individual in no apparent distress. Cam boot on the left foot to stabilize left ankle, Duke wrap bandage on the right foot ankle ( some bruising on the right heel), wrap on the right wrist to
stabilize right wrist after the surgery.
Pain/Comfort Assessment:Patient endorses pain on her left ankle and right wrist.
Mood/Affect: Appropriate
Eyes: Conjunctiva/Lids: some swelling/ecchymosis around her right eye. No infection signs.
Pupils: pupils equal round and reactive to light and Accommodation
Ears/Nose/Throat: oral mucosa moist, throat clear.
Neck: No muscle spasm or tenderness
Cardiovascular: Heart: regular, no murmur
Pulses: dorsalis pedis 2+ bilaterally
Respiratory: Respiratory Effort/Chest Expansion: normal Auscultation: Clear to auscultation bilaterally
Gastrointestinal: abdomen not tender, no distension, normal abdominal bowel sounds
Genitourinary: No Currie
Extremities: Edema: Swelling on bilateral ankle, left leg and right hand. Right wrist brace
Neurology Exam:
Orientation: Alert, Oriented to self, Time, Place
Memory: Intact for recent medical concerns
Repetition: Intact
Comprehension: Intact
Two step command: Intact
Naming: Intact. The communication was conducted by her daughter
Cranial Nerves:
CNII: Pupillary light reflex: Intact Visual Field: Intact
CN III, IV, : Extraocular muscles: Intact
CN V: Facial Sensation at Forehead: Intact, Maxilla: Intact, Mandible: Intact
CN VII: Facial movement: Symmetric
CN VIII: Hearing: Normal with talking
CN IX/X: Speech & swallow: Normal, Position of Uvula: Midline
CN XI: Shoulder shrug: Symmetric
CN XII: Tongue protrusion: Midline
Sensory:
Light touch: The sensory examination was limited due her cast and cam boot. Decreased light touch over the left lateral calf. Otherwise intact.
Reflexes:
Biceps: 2 + on left side/right not be assessed (right wrist surgery )
Brachioradialis: 2 + on left side/right not be assessed (had right wrist surgery)
Triceps:2 + on left side/right not be assessed (had right wrist surgery and has wrap on it)
Patellar: 2 + bilaterally.
Achilles: not assessed due pain
Babinski: going down on the right side, Left side could not be assessed due cam boot.
Musculoskeletal:
Motor examination was suboptimal due her pain, right wrist surgery and cam boot. 5/5 strength left arm and proximal right arm. Right distal deferred with nonweightbearing status. Bilateral hip flexion 4/5, knee extension 5/5. Right ankle
movement 4/5 secondary to pain, left ankle deferred with Cam boot
Tone: Normal in all extremities
Range of Motion: ROM is limited on her right wrist with surgery and left ankle with boot.
Lab Results
Laboratory Data
04/07/24 05:50
04/08/24 04:39
Diagnostic Results: As per HPI
Assessment
78 year old female who was diagnosed with displaced intra-articular right distal radius fracture as well as a nondisplaced left lateral malleolus fracture after she fall down. Orthopedic team decided to conservative treatment for her left ankle vs
to surgery and the patient had ORIF surgery on her right hand on 04/07. Per PT report, the patient is with WBAT on her left lower/right lower extremity and is with NWB on her right upper extremity. Additionally her PT reported that she was able to
ambulate 30 feet using a hemiwalker. SNF can be recommended to the patient regarding her minimal assistance during mobilization and not having medical complexity.
Plan
Fall: Patient reports her falling can be related her left leg pain. Sciatica: Further evaluate with possible EMG/nerve conduction study and lumber MRI with neurology as outpatient. Patient notes an L5 and L1 radiculopathy, possible it is a L5-S1
radiculopathy. Continue Fall precaution.
R distal radius fracture
-ORIF surgery with ortho on 04/07/24.
- Pain appropriately controlled with tylenol and dilauded PRN.
- Continue nonweight bearing and elevation of right upper extremity
- PT/OT
Left distal fibular head fracture with no displacement: Surgical boot on left ankle, continue conservative management with Ortho following . Continue PT/OT following and the patient is on WBAT on her both LE
Right foot chip fracture:
- xray showing possible tiny chip fracture of distal fibula, soft tissue calcification vs old fracture of cuboid bone, mild first MTP joint osteoarthritis
- Pain control as above. Continue duke wrap on foot for patient comfort. Continue conservative management.
- Ortho following. PT/OT following and the patient is on WBAT on her both LE
Reported left-sided radiculopathy: Could be related to her having falls, was doing outpatient therapy for this. Follow back up with her outpatient providers.
Hypertension: Continue current management with amlodipine, hydrochlorothiazide, and olmesartan, monitor vital sign.
FEN: Elevating BUN, encourage hydration.
DVT prophylaxis: Lovenox. TEDs can be considered for mechanical prophylaxis
Dispo (date/plan/equipment needs): Home with family care.
Discharge Destination: detention facility. Patient is supervision for transfers, min assist ambulating 40 feet. Dependent for lower extremity dressing. Medically stable. Anticipate that she will be able to get equal gains at a skilled
nursing facility and acute inpatient rehabilitation. Discussed at length with patient and her daughter. Suggest shelter facility with transition to home care or outpatient.
Functional and Medical Goals: Modified Independent with ADL�s, ambulation, transfers
Summary of recommendations:
- Discharge Destination: detention facility
Thanks Dr Haider for involving me in this patient`s care.
Mackenzie Adam MD
Transitional Year Residency Program
Attending Statement:
I saw and examined with the resident 04/08/2024.. Reviewed care plan with patient, daughter, case management, nursing, and resident. I agree with the above subjective and physical exam, and plan as documented by NAVDEEP Francisco with adjustments made
as necessary.
A total of 60 minutes were spent with the patient preparing for the evaluation, obtaining history, performing examination and evaluation, counseling, data review, case management, care coordination, order expediter, and EMR documentation.
[2024-04-07] MEDS: NSS 1000 IV (18:26)
[2024-04-07] MEDS: LOVENOX 40 MG SC (18:26)
--- NOTE | 2024-04-07 18:33 | PTCARENOTE ---
patient returned from OR at 1800. pt drowsy but oriented x3. neurovascular check performed to RUE. pt offers no complaints at this time
[2024-04-07] MEDS: DESENEX/MITRAZOL/ZEASORB 1 APPLIC TOPICAL (20:31)
[2024-04-07] MEDS: COLACE 100 MG PO (20:31)
[2024-04-07] MEDS: SINGULAIR 10 MG PO (21:12)
[2024-04-07] MEDS: NORVASC 10 MG PO (21:12)
[2024-04-07] MEDS: ANCEF 5 IV (21:13)
[2024-04-07] MEDS: BENADRYL 25 MG PO (22:26)
[2024-04-08] MEDS: NSS 1000 IV (05:17)
[2024-04-08] MEDS: ANCEF 5 IV (05:18)
[2024-04-08 07:18] LABS: Blood Urea Nitrogen 28 mg/dl (7-17); Calcium 8.3 mg/dl (8.4-10.2); Carbon Dioxide 27 mmol/L (22-30); Chloride 104 mmol/L (98-107); Estimated Creatinine Clearance 53 ml/min; Glucose 142 mg/dl (70-99); Potassium 4.2 mmol/L (3.5-5.1); Sodium 141 mmol/L (135-145); eGFR > 60.00
[2024-04-08 07:39] VITALS: BP 154/68
[2024-04-08] MEDS: ORETIC 25 MG PO (07:54)
[2024-04-08] MEDS: COLACE 100 MG PO ×2 (07:54→20:25)
[2024-04-08] MEDS: BENICAR 40 MG PO (07:55)
[2024-04-08] MEDS: PROTONIX 40 MG PO (07:55)
[2024-04-08] MEDS: DESENEX/MITRAZOL/ZEASORB 1 APPLIC TOPICAL ×2 (07:56→20:25)
[2024-04-08] MEDS: DILAUDID 0.5 MG IV ×2 (10:30→19:27)
--- NOTE | 2024-04-08 11:33 | W.PN.HOSP.TC ---
Addendum entered and electronically signed by Tank Clinton MD 04/08/24 22:51:
Attending Addendum-
I saw and evaluated the patient. I reviewed the resident�s note and agree with findings and plan as documented in the resident�s note. Sub: continues to have pain in right wrist > right foot. Full 12 point ROS reviewed and negative except as
documented Exam: Vitals reviewed in chart GEN-NAD right periorbital bruising resolving heart RRR lungs clear abd soft Ext- right wrist in in cast LLE in boot able to wiggle toes and fingers well perfused
# Right wrist fracture
- s/p closed reduction in ED
- cont NWB
- cont Pain control
- s/p ORIF on 04/07 Dr. Kang
- not an acute rehab candidate
- cont PT OT likely snf
# Left distal fibular head fracture W/O displacement
- conservative tx
- WBAT
- cont CAM boot
- IV Dilaudid as needed
- Tylenol as needed
- PT OT
# Right Foot Chip Fracture
- conservative care
- pain control
- WBAT
# Hypokalemia
- resolved
- replete prn
- check BMP in am
# Hypertension
- Continue amlodipine HCTZ and olmesartan
# HLD- cont repatha as op
# GERD- cont lansoprazole
Code- full
DVT prophylaxis Lovenox
Dispo- not acute rehab candidate for SNF in am
Time spent coordinating care, review of plan of care with resident, personally reviewed records in EMR, med rec, consults, notes, labs, radiology, d/w nursing daughter � 56 mins
Original Note:
Today's Communication/Plan
-
Urinalysis pending, stable for discharge when SNF available
Assessment / Plan
Assessment / Plan
78 year old female with history of hypertension who presented to hospital after a mechanical fall and found to have multiple fractures
#S/p mechanical fall
- Fall precaution
#R distal radius fracture
- Initially managed with closed reduction, splint.
- s/p ORIF with ortho 04/07
- Continue nonweight bearing and elevation of right upper extremity.
- Patient has not been getting tylenol for pain relief, only IV dilaudid. Orders adjusted to standing tylenol. For breakthrough moderate to severe pain, can use roxicodone 5mg prn. Goal is to adequately control pain with oral medication.
- PT/OT following.
- Physiatry consulted and recommends SNF for rehabilitation. Discussed with patient and daughter.
- Will plan for outpatient follow up with ortho in 2 weeks for repeat evaluation, radiographs, removal of sutures. If patient returns to her home in [place] prior to this, she and her daughter are aware that appropriate postoperative follow up will
need to be arranged locally.
#Left distal fibular head fracture with no displacement:
- Surgical boot in place, continue conservative management.
- Pain control as above.
- Ortho following. PT/OT following.
#Right foot chip fracture
- xray showing possible tiny chip fracture of distal fibula, soft tissue calcification vs old fracture of cuboid bone, mild first MTP joint osteoarthritis
- Pain control as above. Continue des wrap on foot for patient comfort. Continue conservative management.
- Ortho following. PT/OT following.
#Hypertension
- Recent BPs normotensive to hypertensive.
- Continue amlodipine and olmesartan
#Hypokalemia: resolved
- S/p 20meq K PO
- Serum K 3.4 --> 4.2 today
#Pruritus without rash:
- Improving s/p benadryl
#Dysuria
- urinalysis pending
Full code
DVT prophylaxis Lovenox
Dispo planning: Appropriate for hospital discharge when SNF available
Anticipated Discharge: Within 24 hours
Subjective/Interval History
-
Date of Service: April 08, 2024
No acute events overnight. Reports pain in her right hand and both feet that is controlled with dilaudid. Complains of new burning with urination. Denies fevers, chills, lightheadedness, dizziness, chest pain, shortness of breath, nausea, vomiting.
She is tolerating PO diet and ambulating small distances in room with assistance.
Objective Data
-
Labs:
Laboratory Results
04/08/24
04:39
Sodium 141
Potassium 4.2
Chloride 104
Carbon Dioxide 27
BUN 28 H
Creatinine 0.8
Glucose 142 H
Calcium 8.3 L
Vital Signs:
Vital Signs
Temp Pulse Resp BP Pulse Ox
97.9 F 78 16 154/68 93
04/08/24 07:39 04/08/24 07:54 04/08/24 07:39 04/08/24 07:54 04/08/24 07:39
I&O
04/07/24 04/08/24 04/09/24
06:59 06:59 06:59
Intake Total 1140 / 1140 1190 / 1190
Balance 1140 / 1140 1190 / 1190
Review of Systems
-
History Source: Patient
All other systems: Reviewed and negative
Physical Exam
-
General: Well Developed, Well Nourished, No Apparent Distress, Comfortable and Conversant
HEENT: Normocephalic and Other (right periorbital ecchymosis)
Respiratory: Clear to Auscultation and Non Labored Respirations
Cardiac: Regular Rhythm and S1/S2
GI: Soft, Nontender, Nondistended and Normal Bowel Sounds
Musculoskeletal: No Cyanosis, No Edema and Other (R wrist splint and wrap in place. L foot boot and R foot wrap were off at time of exam, replaced by me per patient request. Distal extremities well perfused, +bilateral dorsalis pedal pulses)
Skin: Warm and Dry
Neuro: Awake, Alert and Oriented
Psych: Calm
Data Reviewed
-
Labs: Labs Reviewed by me and Discussed with Physician
[2024-04-08] MEDS: NSS IV (13:04)
--- NOTE | 2024-04-08 13:16 | CM ---
Addendum entered by Ayanna Cardoza 04/08/24 16:20:
Patient and daughter seen bedside, provided list of SNF. Discussed [facility] unable to accept. Additional SNF sent in [facility].
Original Note:
CM reviewed chart, per Dr. Haider and Resident, patient not appropriate for Acute Rehab, recommending Skilled Rehab. Patient and daughter, Abigail, seen bedside. Abigail and patient would like additional referrals sent to [facility]. CM discussed patient will need an authorization approval through insurance, insurance may deny Acute Rehab. CM discussed SNF as back up option, daughter would like to look into facilities, given Medicare.gov website to look into local
facilities. SNF referrals sent to [facility], [facility]. CM will continue to follow for all discharge planning needs.
Plan; Acute vs SNF pending accepting facility, will need insurance auth. Family would prefer acute over SNF.
[2024-04-08 15:18] VITALS: BP 125/60
[2024-04-08 16:46] LABS: Urine Albumin Negative (Neg - Trace); Urine Bilirubin Negative (Negative); Urine Character Clear (Clear); Urine Color Yellow; Urine Glucose Negative (Negative); Urine Ketone Negative (Negative); Urine Leukocyte 1+ (Negative); Urine Nitrite Negative (Negative); Urine Occult Blood Negative (Negative); Urine Urobilinogen Negative (Neg - 1+)
[2024-04-08 16:55] LABS: Urine Bacteria Many (Negative); Urine Red Blood Cell 0-2 /HPF (0-2)
[2024-04-08] MEDS: LOVENOX 40 MG SC (17:42)
--- NOTE | 2024-04-08 17:56 | W.PN.ORTHO ---
Today's Communication / Plan
-
78 yo F POD 1 s/p ORIF R distal radius fracture, left lateral mal fracture
NWB RUE in splint, ok for platform walker
WBAT LLE in boot
WBAT RLE
pain control
PT/OT
DVT ppx per primary team
medical maangement per primary team
Follow up outpatient in 2 weeks, If remaining local, would see in my office outpatient, if returning to [place], will need to establish care
please reach out with questions or concerns.
Subjective
.
.:
Patient comfortable in bed this AM. Is complaining of some pain right wrist.
Vital Signs and Labs
.
Vital Signs and Labs:
Lab Results
04/07/24 05:50
04/08/24 04:39
Temp Pulse Resp BP Pulse Ox
97.9 F 71 18 125/60 96
04/08/24 15:18 04/08/24 15:18 04/08/24 15:18 04/08/24 15:18 04/08/24 15:18
Physical Exam
-
MSK RUE
Splint in place, CDI
Exposed fingers warm sensate and mobile
[2024-04-08] MEDS: BENADRYL 25 MG PO (19:31)
[2024-04-08] MEDS: TYLENOL 650 MG PO (20:25)
[2024-04-08] MEDS: NORVASC 10 MG PO (22:22)
[2024-04-08] MEDS: SINGULAIR 10 MG PO (22:22)
[2024-04-08 22:58] VITALS: BP 110/49
[2024-04-09] MEDS: TYLENOL PO (03:04)
[2024-04-09] MEDS: TYLENOL 650 MG PO ×5 (05:27→20:21)
[2024-04-09] MEDS: DILAUDID IV (05:30)
[2024-04-09 06:43] LABS: Hematocrit 31.6 % (37.0-47.0); Hemoglobin 10.5 g/dL (12.0-16.0); Mean Corp Hgb Conc. 33.2 g/dL (33.0-37.0); Mean Corpuscular Hgb 28.1 pg (27.0-31.0); Mean Corpuscular Volume 84.5 fL (81.0-99.0); Mean Platelet Volume 10.5 fL (7.4-10.4); Platelet Count 183 10^3/uL (130-400); Red Blood Cell Count 3.74 10^6/uL (4.20-5.40); Red Cell Dist. Width 14.5 % (11.5-14.5); White Blood Cell Count 5.6 10^3/uL (4.8-10.8)
[2024-04-09 07:00] VITALS: BP 134/60
[2024-04-09 07:13] LABS: Blood Urea Nitrogen 34 mg/dl (7-17); Calcium 8.8 mg/dl (8.4-10.2); Carbon Dioxide 26 mmol/L (22-30); Chloride 103 mmol/L (98-107); Estimated Creatinine Clearance 47 ml/min; Glucose 105 mg/dl (70-99); Potassium 4.2 mmol/L (3.5-5.1); Sodium 138 mmol/L (135-145); eGFR > 60.00
[2024-04-09] MEDS: BENICAR 40 MG PO (09:20)
[2024-04-09] MEDS: PROTONIX 40 MG PO (09:20)
[2024-04-09] MEDS: ORETIC 25 MG PO (09:21)
[2024-04-09] MEDS: COLACE 100 MG PO ×2 (09:21→20:21)
[2024-04-09] MEDS: DESENEX/MITRAZOL/ZEASORB 1 APPLIC TOPICAL ×2 (09:22→20:21)
--- NOTE | 2024-04-09 09:32 | W.PN.HOSP.TC ---
Addendum entered and electronically signed by Tank Clinton MD 04/09/24 22:29:
Attending Addendum-
I saw and evaluated the patient. I reviewed the resident�s note and agree with findings and plan as documented in the resident�s note. Sub: complains of pain in right wrist > right foot. Appears comfortable. Seen with daughter present. Full 12
point ROS reviewed and negative except as documented Exam: Vitals reviewed in chart GEN-NAD right periorbital bruising resolving heart RRR lungs clear abd soft Ext- right wrist in in cast LLE in boot able to wiggle toes and fingers well perfused
# Right wrist fracture
- cont NWB
- cont Pain control
- s/p ORIF on 04/07 Dr. Kang
- not an acute rehab candidate
- cont PT OT
- DC to snf when able
# Left distal fibular head fracture W/O displacement
- conservative tx
- WBAT
- cont CAM boot
- DC IV Dilaudid
- attempt tramadol
- Tylenol ATC
- PT OT
# Right Foot Chip Fracture
- conservative care
- pain control
- WBAT
# Hypokalemia
- resolved
- replete prn
- check BMP in am
# Hypertension
- Continue amlodipine HCTZ and olmesartan
# HLD- cont repatha as op
# GERD- cont lansoprazole
Code- full
DVT prophylaxis Lovenox
Dispo- not acute rehab candidate DC to SNF in am - [facility] at [facility] - daughter refused
Time spent coordinating care, review of plan of care with resident, personally reviewed records in EMR, med rec, consults, notes, labs, radiology, d/w nursing daughter � 55 mins
Original Note:
Today's Communication/Plan
-
Discharge to SNF
Assessment / Plan
Assessment / Plan
78 year old female with history of hypertension who presented to hospital after a mechanical fall and found to have multiple fractures
#S/p mechanical fall
- Fall precaution
#R distal radius fracture
- Initially managed with closed reduction, splint.
- s/p ORIF with ortho 04/07
- Continue nonweight bearing and elevation of right upper extremity.
- Required dilauded x2 yesterday. Will transition to PO regimen, continue standing tylenol. Goal is to adequately control pain with oral medication prior to discharge- discussed with patient.
- PT/OT following.
- Physiatry consulted and recommends SNF for rehabilitation. Previously discussed with patient and daughter.
- Will plan for outpatient follow up with ortho in 2 weeks for repeat evaluation, radiographs, removal of sutures. If patient returns to her home in [place] prior to this, she and her daughter are aware that appropriate postoperative follow up will
need to be arranged locally.
#Left distal fibular head fracture with no displacement:
- Surgical boot in place, continue conservative management, weight bearing as tolerated.
- Pain control as above.
- Ortho following. PT/OT following.
#Right foot chip fracture
- xray showing possible tiny chip fracture of distal fibula, soft tissue calcification vs old fracture of cuboid bone, mild first MTP joint osteoarthritis
- Pain control as above. Continue des wrap on foot for patient comfort. Continue conservative management, weight bearing as tolerated.
- Ortho following. PT/OT following.
#Hypertension
- Continue amlodipine and olmesartan
#Hypokalemia: resolved
- S/p 20meq K PO
- Serum K 3.4 --> 4.2 today
#Pruritus without rash:
- Improving s/p benadryl
#Dysuria
- urinalysis +1 leuk esterase, many bacteria
- urine culture pending
- Reports spontaneous resolution of symptoms
#Constipation
- Patient has been getting standing docusate. Recommended she use miralax which is ordered prn.
Full code
DVT prophylaxis Lovenox
Dispo planning: Discharge to SNF available
Anticipated Discharge: Today
Subjective/Interval History
-
Date of Service: April 09, 2024
No acute events overnight. Sleeping peacefully, and woke upon entry to room. Reports pain in right wrist. She denies burning with urination today, reports that has resolved. She denies lightheadedness, dizziness, chest pain, shortness of breath,
nausea, vomiting. She is tolerating PO diet and ambulating with assistance. She reports she has not had a bowel movement in several days.
Objective Data
-
Labs:
Laboratory Results
04/09/24
05:15
WBC 5.6
Hgb 10.5 L
Hct 31.6 L
Plt Count 183
Sodium 138
Potassium 4.2
Chloride 103
Carbon Dioxide 26
BUN 34 H
Creatinine 0.9
Glucose 105 H
Calcium 8.8
Vital Signs:
Vital Signs
Temp Pulse Resp BP Pulse Ox
98.2 F 71 18 134/60 96
04/09/24 07:00 04/09/24 07:00 04/09/24 07:00 04/09/24 07:00 04/09/24 07:00
I&O
04/08/24 04/09/24 04/10/24
06:59 06:59 06:59
Intake Total 1190 / 1190 1140 / 1140
Output Total 300 / 300
Balance 1190 / 1190 840 / 840
Review of Systems
-
History Source: Patient
All other systems: Reviewed and negative
Physical Exam
-
General: Well Developed, Well Nourished, No Apparent Distress, Comfortable, Conversant and Other (sleeping peacefully, easily aroused when spoken to)
HEENT: Normocephalic and Other (right periorbital ecchymosis improving)
Respiratory: Clear to Auscultation and Non Labored Respirations; Negative Wheezes
Cardiac: Regular Rhythm and S1/S2
GI: Soft, Nontender and Nondistended
Musculoskeletal: No Cyanosis, No Edema and Other (RUE splint/wrap, LLE boot, distal extremities well perfused)
Skin: Warm and Dry
Neuro: Awake, Alert and Oriented
Psych: Calm
Data Reviewed
-
Labs: Labs Reviewed by me and Discussed with Physician
--- NOTE | 2024-04-09 12:19 | CM ---
Addendum entered by Ayanna Cardoza 04/09/24 15:58:
Additional referrals sent in [facility]. No bed availability at [facility], [facility], [facility], [facility]. [facility] and [facility] do not accept patients insurance. Awaiting response from [facility], [facility], [facility], [facility], [facility], and [facility]. CM spoke with Alley in Admissions at [facility], able to offer bed. Daughter touring [facility] SNF, awaiting decision regarding [facility]
SNF.
Original Note:
CM placed call to patients daughterAbigail, discussed accepting SNF include [facility] and [facility]. Daughter will be touring facilities, will call CM on facility chosen to initiate SNF auth. Update to Resident. CM will continue to follow
for all discharge planning needs.
Plan; SNF pending family decision, will need auth.
--- NOTE | 2024-04-09 12:45 | W.DCSUMMARY ---
Addendum entered and electronically signed by Tank Clinton MD 04/10/24 22:42:
Read, reviewed, and agree. See same day progress note for additional details.
Manuel Clinton MD
Original Note:
Documented by User: Kayley Chandra MD, Resident 04/10/24 22:40
Discharge Summary
Discharge Data
Date of Admission: 04/04/24
Date of Discharge: 04/10/24
-
Pending Results: No
Hospital Course
Discharging Physician : Dr. Chandra, Dr. Clinton
Disposition : SNF
Primary care physician : Unknown
Principal Discharge diagnosis : right wrist fracture, left nondisplaced distal fibular head fracture, right foot chip fracture
Chronic Discharge diagnosis : HTN, HLD, GERD
Hospital Course : Josephine presented to the ED after a mechanical fall due to tripping on steps, and she was diagnosed with several fractures. Her lower extremity fractures were managed conservatively with a right CAM boot and left foot wrap, and
weight bearing as tolerated. Her wrist fracture was initially managed with closed reduction and splint, followed by surgery ORIF on 04/07. Right upper extremity nonweightbearing status. Ortho and PT/OT followed throughout hospitalization. Physiatry
was consulted and recommended SNF as she was not a candidate for acute rehabilitation. On day of discharge, she was stable for discharge to SNF.
Important imaging findings :
L Ankle xray: IMPRESSION: Subtle fracture of the distal left fibula without significant displacement.
Head CT: IMPRESSION:
Crescentic soft tissue density in the right anterior frontal scalp and extending to the right periorbital region, compatible with soft tissue contusion/hematoma. No evidence of acute intracranial abnormality.
Head/orbits CT: IMPRESSION: Right periorbital soft tissue contusion. No evidence for fracture. No evidence for intraorbital injury.
R Wrist xray: IMPRESSION: Comminuted impacted intra-articular fracture of the distal right radius. Displaced fracture of the ulnar styloid process.
R Wrist xray: IMPRESSION: Post reduction of right wrist fracture, with overlying cast.
R Foot xray: IMPRESSION: Possible tiny chip fracture of the distal fibula. This may be old or acute. Clinical correlation recommended. Probable benign soft tissue calcification versus old fracture of the cuboid bone. Mild first MTP joint
osteoarthritis.
Procedure findings :
Operative Findings : Displaced and significantly comminuted intra-articular right distal radius fracture
Procedure and Technique: Open reduction internal fixation right distal radius fracture, 3 more fragments
Discharge Plan
-
Patient Disposition: Halfway/SNF
Discharge Diagnosis/Procedures: Right wrist fracture, left distal fibular head fracture, right foot chip fracture, hypokalemia
Condition: Fair
Diet: As tolerated and Regular
Activity: No strenuous activity and Other activity
Additional Activity: Do not bear weight right upper extremity. Weight bearing as tolerated left and right lower extremity.
Driving Restrictions: Not until seen by your Dr
Other Services: PT and OT
Activity Restrictions/Additional Instructions:
Do not bear weight right upper extremity. Weight bearing as tolerated left and right lower extremity.
Instructions: Surgery to fix a broken bone - Discharge instructions
Referrals:
NONE,* [Family Provider] - in one to two weeks (Call your primary care provider or family doctor to schedule an appointment in 1-2 weeks for continued care)
Triston Kang MD [Active] - in two weeks (Please schedule appointment with your surgeon's office in 2 weeks for follow up care and removal of sutures. If you return to [place] prior to this appointment, you will need to follow up with your local
doctor.)
Prescriptions:
New
acetaminophen 325 mg Tablet
650 mg PO Q4 PRN (Reason: Pain) 7 Days Qty: 30 0RF
tramadol 50 mg Tablet
50 mg PO Q6HPRN PRN (Reason: MODERATE PAIN) Qty: 14 0RF
Rx Instructions:
For pain, first take tylenol. Then, if pain still severe take 1 tramadol
polyethylene glycol 3350 [HealthyLax] 17 gram Powder In Packet
17 g PO DAILYPRN PRN (Reason: constipation) Qty: 14 0RF
Continued
amlodipine 10 mg Tablet
10 mg PO HS
lansoprazole 30 mg Capsule,Delayed Release(Dr/Ec)
30 mg PO DAILY
montelukast 10 mg Tablet
10 mg PO HS
hydrochlorothiazide 25 mg Tablet
25 mg PO DAILY
olmesartan 40 mg Tablet
40 mg PO DAILY
icosapent ethyl [Vascepa] 1 gram Capsule
2 g PO BID
Systane Complete PF
BOTH EYES QID
Systane Gel
BOTH EYES HS
Repatha SureClick 140 mg/mL pen injector
140 mg SC Q2W Qty: 1 0RF
Discharge Orders:
Discharge Patient (As Directed); Ordered 04/09/24
Ordered By: Kayley Chandra
Discharge Date and Time
Discharge Date/Time: 04/10/24 16:41
Print Language: GERMAN

Documented by User: Tank Clinton MD 04/10/24 22:41
Discharge Summary
Discharge Data
Date of Admission: 04/04/24
Date of Discharge: 04/10/24
Discharge Plan
-
Patient Disposition: Halfway/SNF
Discharge Diagnosis/Procedures: Right wrist fracture, left distal fibular head fracture, right foot chip fracture, hypokalemia
Condition: Fair
Diet: As tolerated and Regular
Activity: No strenuous activity and Other activity
Additional Activity: Do not bear weight right upper extremity. Weight bearing as tolerated left and right lower extremity.
Driving Restrictions: Not until seen by your Dr
Other Services: PT and OT
Activity Restrictions/Additional Instructions:
Do not bear weight right upper extremity. Weight bearing as tolerated left and right lower extremity.
Instructions: Surgery to fix a broken bone - Discharge instructions
Referrals:
NONE,* [Family Provider] - in one to two weeks (Call your primary care provider or family doctor to schedule an appointment in 1-2 weeks for continued care)
Triston Kang MD [Active] - in two weeks (Please schedule appointment with your surgeon's office in 2 weeks for follow up care and removal of sutures. If you return to [place] prior to this appointment, you will need to follow up with your local
doctor.)
Prescriptions:
New
acetaminophen 325 mg Tablet
650 mg PO Q4 PRN (Reason: Pain) 7 Days Qty: 30 0RF
tramadol 50 mg Tablet
50 mg PO Q6HPRN PRN (Reason: MODERATE PAIN) Qty: 14 0RF
Rx Instructions:
For pain, first take tylenol. Then, if pain still severe take 1 tramadol
polyethylene glycol 3350 [HealthyLax] 17 gram Powder In Packet
17 g PO DAILYPRN PRN (Reason: constipation) Qty: 14 0RF
Continued
amlodipine 10 mg Tablet
10 mg PO HS
lansoprazole 30 mg Capsule,Delayed Release(Dr/Ec)
30 mg PO DAILY
montelukast 10 mg Tablet
10 mg PO HS
hydrochlorothiazide 25 mg Tablet
25 mg PO DAILY
olmesartan 40 mg Tablet
40 mg PO DAILY
icosapent ethyl [Vascepa] 1 gram Capsule
2 g PO BID
Systane Complete PF
BOTH EYES QID
Systane Gel
BOTH EYES HS
Repatha SureClick 140 mg/mL pen injector
140 mg SC Q2W Qty: 1 0RF
Discharge Orders:
Discharge Patient (As Directed); Ordered 04/09/24
Ordered By: Kayley Chandra
Discharge Date and Time
Discharge Date/Time: 04/10/24 16:41
Print Language: GERMAN
[2024-04-09 15:39] VITALS: BP 147/61
[2024-04-09] MEDS: ULTRAM 50 MG PO (17:28)
[2024-04-09] MEDS: LOVENOX 40 MG SC (17:31)
[2024-04-09] MEDS: SENOKOT-S 1 TABLET PO (18:09)
[2024-04-09 19:53] VITALS: BP 131/62
[2024-04-09] MEDS: SINGULAIR 10 MG PO (20:21)
[2024-04-09] MEDS: NORVASC 10 MG PO (21:50)
[2024-04-09 23:45] VITALS: BP 134/58
[2024-04-10] MEDS: TYLENOL 650 MG PO ×4 (00:31→12:45)
[2024-04-10 06:52] LABS: Hematocrit 32.3 % (37.0-47.0); Hemoglobin 10.9 g/dL (12.0-16.0); Mean Corp Hgb Conc. 33.7 g/dL (33.0-37.0); Mean Corpuscular Hgb 27.5 pg (27.0-31.0); Mean Corpuscular Volume 81.6 fL (81.0-99.0); Mean Platelet Volume 10.8 fL (7.4-10.4); Platelet Count 182 10^3/uL (130-400); Red Blood Cell Count 3.96 10^6/uL (4.20-5.40); Red Cell Dist. Width 14.3 % (11.5-14.5); White Blood Cell Count 4.5 10^3/uL (4.8-10.8)
[2024-04-10 07:20] LABS: Blood Urea Nitrogen 25 mg/dl (7-17); Calcium 8.9 mg/dl (8.4-10.2); Carbon Dioxide 29 mmol/L (22-30); Chloride 103 mmol/L (98-107); Estimated Creatinine Clearance 53 ml/min; Glucose 96 mg/dl (70-99); Potassium 4.6 mmol/L (3.5-5.1); Sodium 141 mmol/L (135-145); eGFR > 60.00
[2024-04-10 07:30] VITALS: BP 143/60
--- NOTE | 2024-04-10 08:14 | W.PN.HOSP.TC ---
Addendum entered and electronically signed by Tank Clinton MD 04/10/24 15:10:
Attending Addendum-
I saw and evaluated the patient. I reviewed the resident�s note and agree with findings and plan as documented in the resident�s note. Sub: complains of pain but appears comfortable. Seen with daughter present. Full 12 point ROS reviewed and
negative except as documented Exam: Vitals reviewed in chart GEN-NAD right periorbital bruising resolving heart RRR lungs clear abd soft Ext- right wrist in in cast LLE in boot able to wiggle toes and fingers well perfused
# Right wrist fracture
- cont NWB
- cont Pain control
- s/p ORIF on 04/07 Dr. Kang
- not an acute rehab candidate
- cont PT OT
- DC to snf today
# Left distal fibular head fracture W/O displacement
- conservative tx
- WBAT
- cont CAM boot
- DC IV Dilaudid
- cont tramadol (oxy gives her rash)
- Tylenol ATC
- PT OT
# Right Foot Chip Fracture
- conservative care
- pain control
- WBAT
# Hypokalemia
- resolved
- replete prn
- check BMP in am
# Hypertension
- Continue amlodipine HCTZ and olmesartan
# HLD- cont repatha as op
# GERD- cont lansoprazole
Code- full
DVT prophylaxis Lovenox
Dispo- not acute rehab candidate DC to [facility]
Time spent coordinating care, review of plan of care with resident, DC planning, transition of care, personally reviewed records in EMR, med rec, consults, notes, labs, radiology, d/w nursing CM and daughter � 36 mins
Original Note:
Today's Communication/Plan
-
Discharge to SNF today
Assessment / Plan
Assessment / Plan
78 year old female with history of hypertension who presented to hospital after a mechanical fall and found to have multiple fractures
#S/p mechanical fall
- Fall precaution
- See plans below
#R distal radius fracture
- Initially managed with closed reduction, splint.
- s/p ORIF with ortho 04/07
- Continue nonweight bearing and elevation of right upper extremity.
- Continue tylenol and tramadol for pain control. Goal is to adequately control pain with oral medication prior to discharge- discussed with patient.
- PT/OT following.
- Physiatry consulted and recommends SNF for rehabilitation. Previously discussed with patient and daughter.
- Will plan for outpatient follow up with ortho in 2 weeks for repeat evaluation, radiographs, removal of sutures. If patient returns to her home in [place] prior to this, she and her daughter are aware that appropriate postoperative follow up will
need to be arranged locally.
#Left distal fibular head fracture with no displacement:
- Surgical boot in place, continue conservative management, weight bearing as tolerated.
- Pain control as above.
- Ortho following. PT/OT following.
#Right foot chip fracture
- xray showing possible tiny chip fracture of distal fibula, soft tissue calcification vs old fracture of cuboid bone, mild first MTP joint osteoarthritis
- Pain control as above. Continue des wrap on foot for patient comfort. Continue conservative management, weight bearing as tolerated.
- Ortho following. PT/OT following.
#Hypertension
- Continue amlodipine and olmesartan
#Hypokalemia: resolved
- S/p 20meq K PO
- Serum K 3.4 --> 4.6 today
#Pruritus without rash: resolved
- Improved s/p benadryl
#Dysuria: resolved
- Reports spontaneous resolution of dysuria
#Asymptomatic bacteruria
- urinalysis +1 leuk esterase, many bacteria
- urine culture positive for proteus vulgaris
- Given that she is asymptomatic, no indication for treatment at this time.
#Constipation
- Passed BM today. Continue docusate, miralax as needed.
Full code
DVT prophylaxis Lovenox
Dispo planning: Discharge to SNF today
Anticipated Discharge: Today
Subjective/Interval History
-
Date of Service: April 10, 2024
No acute events overnight. Reports pain in right wrist that is slightly improved with pain medication. She says ice packs have also helped a bit. Denies lightheadedness, dizziness, chest pain, shortness of breath, nausea, vomiting. She denies
burning with urination, she says this completely resolved. She is tolerating PO diet and ambulating short distances with assistance. She had a bowel movement this morning which was formed/firm, denies black or bloody stool, denies diarrhea.
Objective Data
-
Labs:
Laboratory Results
04/10/24
04:55
WBC 4.5 L
Hgb 10.9 L
Hct 32.3 L
Plt Count 182
Sodium 141
Potassium 4.6
Chloride 103
Carbon Dioxide 29
BUN 25 H
Creatinine 0.8
Glucose 96
Calcium 8.9
Vital Signs:
Vital Signs
Temp Pulse Resp BP Pulse Ox
98.0 F 60 16 134/58 96
04/09/24 23:45 04/09/24 23:45 04/09/24 23:45 04/09/24 23:45 04/09/24 23:45
I&O
04/09/24 04/10/24 04/11/24
06:59 06:59 06:59
Intake Total 1140 / 1140 800 / 800
Output Total 300 / 300 350 / 350
Balance 840 / 840 450 / 450
Review of Systems
-
History Source: Patient
All other systems: Reviewed and negative
Physical Exam
-
General: Well Developed, Well Nourished, No Apparent Distress, Comfortable, Conversant and Other (sitting comfortably in chair)
HEENT: Normocephalic and Other (R periorbital ecchymosis improving)
Respiratory: Clear to Auscultation and Non Labored Respirations; Negative Wheezes
Cardiac: Regular Rhythm and S1/S2
GI: Soft, Nontender, Nondistended and Normal Bowel Sounds
Musculoskeletal: No Cyanosis, No Edema and Other (RUE splint/wrap, LLE boot, distal extremities well perfused)
Skin: Warm and Dry
Neuro: Awake, Alert and Oriented
Psych: Calm
Data Reviewed
-
Labs: Labs Reviewed by me and Discussed with Physician
[2024-04-10] MEDS: BENICAR 40 MG PO (08:39)
[2024-04-10] MEDS: ORETIC 25 MG PO (08:39)
[2024-04-10] MEDS: COLACE 100 MG PO (08:39)
[2024-04-10] MEDS: PROTONIX 40 MG PO (08:39)
[2024-04-10] MEDS: DESENEX/MITRAZOL/ZEASORB 1 APPLIC TOPICAL (08:40)
[2024-04-10] MEDS: ULTRAM 50 MG PO (08:45)
--- NOTE | 2024-04-10 10:48 | CM ---
Addendum entered by Ayanna Cardoza 04/10/24 14:45:
[facility] transport scheduled for 4:30 p.m.
Addendum entered by Ayanna Cardoza 04/10/24 14:25:
CM received fax from Cristóbal, auth approved 13 days, 04/10-04/22, auth #[id number]. Update to Alley at [facility]. [facility] Van transport requested.
Addendum entered by Ayanna Cardoza 04/10/24 12:54:
CM met with daughterAbigail, in [facility], reviewed IMM, signed, placed in chart.
Original Note:
CM spoke with patients daughterAbigail, toured [facility], agreeable to facility. CM discussed patient likely will not qualify for ambulance, patient family can transport or family can provide payment for wheelchair van transport, daughter aware.
CM spoke with Alley in admissions at [facility], can accept patient over weekend if auth approved over weekend, call Alley at [phone]. Auth submitted through [employer], status pending. Clinicals faxed to [phone]. CM will continue to
follow for all discharge planning needs.
Plan; SNF [facility] pending auth, clinicals pending
[facility]
Report: [phone]
[2024-04-10 15:34] VITALS: BP 129/70
== END 2024-04-10 16:41 | DRG 512 ==
LOC: 4 WEST ACU 20:32
PROVIDERS: Student in an Organized Health Care Education/Training Program; ADMITTING PHYSICIAN Internal Medicine; ATTENDING PHYSICIAN Family Medicine; CONSULT PHYSICIAN Orthopaedic Surgery; CONSULT PHYSICIAN Physical Medicine & Rehabilitation; EMERGENCY PHYSICIAN Student in an Organized Health Care Education/Training Program
PROC: 0PSH04Z Reposition Right Radius with Internal Fixation Device, Open Approach (ICD-10-PCS; 2024-04-07)
DX: S52.571A Other intraarticular fracture of lower end of right radius, initial encounter for closed fracture (principal); I10 Essential (primary) hypertension; E87.6 Hypokalemia; E78.5 Hyperlipidemia, unspecified; K21.9 Gastro-esophageal reflux disease without esophagitis; S62.101A Fracture of unspecified carpal bone, right wrist, initial encounter for closed fracture; S82.402A Unspecified fracture of shaft of left fibula, initial encounter for closed fracture; W19.XXXA Unspecified fall, initial encounter
CPT/HCPCS: 25565; 29515; 70450; 70480; 73070; 73100; 73110; 73502; 73564; 73600; 73610; 73630; 80048; 81003; 81015; 85027; 87077; 87086; 87186; 93005; 96374; 96376; 97116; 97163; 97167; 97530; 97535; 99152; 99285; C1713

== ENCOUNTER 2024-04-23 12:22 | Emergency (ER) | payer OTHER, SELFPAY ==
--- NOTE | 2024-04-23 13:00 | ED.GENMED ---
History of Present Illness
General
Chief Complaint: DVT/Possible Blood Clot
Source: patient
Exam Limitations: none
Time Seen by Provider: 04/23/24 12:35
Nursing documentation reviewed up to this point in time: agreed with
History of Present Illness
History of Present Illness:
78-year-old female past medical history of asthma hypertension hyperlipidemia also recent fall 3 weeks ago where she injured her left ankle left wrist. She is present to the emergency department today with concerns of swelling redness and warmth to
the left lower extremity from the thigh down to worsening over the past few days. She has been wearing a boot due to her ankle injury.
Review of Systems
Review of Systems
Allergies reviewed?: Yes
All Other Systems: ROS reviewed and negative except as documented in HPI and ROS
Phy Exam
Physical Exam
Physical Exam:
GENERAL: Alert , in no apparent distress
EYE: pupils equal and reactive
NECK: Supple, no significant adenopathy.
ENT: o/p clr, mmm.
CARDIAC: Regular rate and rhythm .
LUNGS: Clear breath sounds bilaterally, no acute respiratory distress, no wheezes/rales/rhonchi
ABDOMEN: Soft, without focal tenderness, no r/g, no cvat
NEUROLOGICAL: Alert and oriented, no focal neuro deficits
SKIN: Warm and dry, skin intact.
MUSCULOSKELETAL: Edema to the left lower extremity from the thigh distally tense palpation vaguely throughout no obvious redness there is some slight warmth throughout the lower extremity good distal pulses
PSYCH: Normal and appropriate interaction.
Course
Orders/Labs/Results
Orders:
Orders
04/23/24 12:51
Venous Doppler Lwr Ext Left [US Periph Venous LOWER Ext LT] Urgent
Comment:
Reason For Exam: left leg swelling pain hx of clot
04/23/24 14:09
Case Management Consult ONCE
Case Management Consult: Discharge Planning
04/23/24 14:12
CBC/With Diff [Complete Blood Count/With Diff] Urgent
CMP [Comprehensive Metabolic Panel] Urgent
04/23/24 14:55
Apixaban [Eliquis] 10 mg PO ONCE ONE
Abnormal Lab Results
04/23/24
14:12
Hgb 11.8 L g/dL
(12.0-16.0)
Hct 36.0 L %
(37.0-47.0)
MCHC 32.8 L g/dL
(33.0-37.0)
Immature Gran % 0.6 H %
(0-0.5)
Monocytes % 10.5 H %
(1.7-9.3)
BUN 23 H mg/dl
(7-17)
04/23/24 14:12
04/23/24 14:12
Vital Signs
Initial and Last Documented VS:
Initial Vital Signs
Temp Pulse Resp BP Pulse Ox
98.0 F 64 16 134/60 98
04/23/24 12:26 04/23/24 12:26 04/23/24 12:26 04/23/24 12:26 04/23/24 12:26
Last Documented Vital Signs
Temp Pulse Resp BP Pulse Ox
98.0 F 65 18 138/58 97
04/23/24 12:26 04/23/24 14:41 04/23/24 14:41 04/23/24 14:41 04/23/24 14:41
MDM/Problems Addressed
MDM/Problems Addressed:
78-year-old female presenting to the emergency department today with concerns of left lower extremity swelling discomfort. Here vital signs are normal patient well-appearing no acute distress. Patient does have a history of PE. Story concerning
for DVT plan for ultrasound for further assessment. Ultrasound showing blood clot to the peroneal vein likely explaining symptoms. Patient started on Eliquis screening labs obtained and normal stable for outpatient management return precautions
given.
*Critical Care Note
Total Time (30-74mins, 75-104mins- exclusive of procedures): Not Applicable
ED Attending Note
-
Portions of this chart may have been created with voice recognition software.� Occasional wrong word or��sound alike� substitutions may have occurred due to the inherent limitations of voice recognition software.
Discharge Plan
Departure
Patient Disposition: Home (Routine Discharge)
Date of Disposition: 04/23/24
Time of Disposition: 15:51
Patient with high blood pressure during this ER visit?: No
Condition: Good
Covid-19: Not Applicable
Discharge Problem:
Acute deep vein thrombosis (DVT) of peroneal vein
Instructions: Deep Vein Thrombosis (Blood Clots in the Legs) (DC)
Prescriptions:
New
Eliquis DVT-PE Treat 30D Start 5 mg (74 tabs) tablets,dose pack
See Rx Instructions .ROUTE .COMPLEX Qty: 74 0RF
Rx Instructions:
orally per package directions
No Action
amlodipine 10 mg Tablet
10 mg PO HS
lansoprazole 30 mg Capsule,Delayed Release(Dr/Ec)
30 mg PO DAILY
montelukast 10 mg Tablet
10 mg PO HS
hydrochlorothiazide 25 mg Tablet
25 mg PO DAILY
olmesartan 40 mg Tablet
40 mg PO DAILY
icosapent ethyl [Vascepa] 1 gram Capsule
2 g PO BID
Systane Complete PF
BOTH EYES QID
Systane Gel
BOTH EYES HS
acetaminophen 325 mg Tablet
650 mg PO Q4 PRN (Reason: Pain) 7 Days Qty: 30 0RF
tramadol 50 mg Tablet
50 mg PO Q6HPRN PRN (Reason: MODERATE PAIN) Qty: 14 0RF
Rx Instructions:
For pain, first take tylenol. Then, if pain still severe take 1 tramadol
polyethylene glycol 3350 [HealthyLax] 17 gram Powder In Packet
17 g PO DAILYPRN PRN (Reason: constipation) Qty: 14 0RF
Repatha SureClick 140 mg/mL pen injector
140 mg SC Q2W Qty: 1 0RF
Referrals:
[facility] [Provider Group] - Follow up in 5-7 days
NONE,* [Family Provider] -
Activity Restrictions/Additional Instructions:
You came to the emergency department today with concerns of left leg swelling and discomfort. You are found to have a DVT. Please take the prescribed Eliquis 10 mg twice daily for the first 7 days and then 5 mg twice daily thereafter. Please have
close with your primary care doctor within the next few weeks. Return to the emergency department for any worsening, new or concerning symptoms.
Interventions
Interventions:
*Risk Screen - Suicide Last Done: 04/23/24 12:51
*General Assessment Last Done: 04/23/24 12:51
*Neglect/Abuse Screening Last Done: 04/23/24 12:51
*ED COVID-19 Vaccine History Last Done: 04/23/24 12:51
ED- Cardiac Assessment Last Done: 04/23/24 12:47
ED- Pulmonary Assessment Last Done: 04/23/24 12:47
ED-Peripheral Vascular Assessment Last Done: 04/23/24 12:47
ED-Skin Assessment Last Done: 04/23/24 12:50
Discharge Date and Time
Print Language: PERUVIAN
[2024-04-23 14:21] LABS: % Basophils 0.8 % (0-2); % Eosinophils 2.1 % (0-6); % Immature Granulocytes 0.6 % (0-0.5); % Lymphocytes 35.9 % (20.5-51.1); % Monocytes 10.5 % (1.7-9.3); % Neutrophils 50.1 % (42.2-75.2); Absolute Eosinophils 0.1 10^3/uL (0-0.7); Absolute Lymphocytes 1.9 10^3/uL (1.2-3.4); Absolute Monocytes 0.6 10^3/uL (0.1-0.6); Absolute Neutrophils 2.6 10^3/uL (1.4-6.5); Hemoglobin 11.8 g/dL (12.0-16.0); Mean Corp Hgb Conc. 32.8 g/dL (33.0-37.0); Mean Corpuscular Hgb 27.7 pg (27.0-31.0); Mean Corpuscular Volume 84.5 fL (81.0-99.0); Mean Platelet Volume 9.5 fL (7.4-10.4); Nucleated Red Blood Cells % 0 %; Platelet Count 268 10^3/uL (130-400); Red Blood Cell Count 4.26 10^6/uL (4.20-5.40); Red Cell Dist. Width 13.9 % (11.5-14.5); White Blood Cell Count 5.3 10^3/uL (4.8-10.8)
--- NOTE | 2024-04-23 14:29 | CM ---
CM was consulted to discuss discharge planning from patient's SNF. CM left message for patient's daughter Abigail.
[2024-04-23 14:45] LABS: ALT (SGPT) 22 U/L (0-35); AST (SGOT) 23 U/L (14-36); Alkaline Phosphatase 108 U/L (38-126); Blood Urea Nitrogen 23 mg/dl (7-17); Calcium 9.7 mg/dl (8.4-10.2); Carbon Dioxide 28 mmol/L (22-30); Chloride 101 mmol/L (98-107); Glucose 96 mg/dl (70-99); Potassium 4.4 mmol/L (3.5-5.1); Sodium 141 mmol/L (135-145); Total Bilirubin 0.3 mg/dl (0.2-1.3); Total Protein 6.9 g/dl (6.3-8.2); eGFR > 60.00
[2024-04-23] MEDS: ELIQUIS 10 MG PO (15:19)
== END 2024-04-23 16:45 | disposition home or self-care (01) ==
LOC: EMR 12:22
PROVIDERS: Physician Assistant; EMERGENCY PHYSICIAN Student in an Organized Health Care Education/Training Program
DX: I82.452 Acute embolism and thrombosis of left peroneal vein (principal); I82.442 Acute embolism and thrombosis of left tibial vein; I10 Essential (primary) hypertension; E78.5 Hyperlipidemia, unspecified
CPT/HCPCS: 99284; 80053; 85025; 93971